=== PATIENT | male | born 1975 | race Caucasian/White ===

== ENCOUNTER 2020-08-04 09:06 | Emergency (ER) | payer MEDICAID, SELFPAY ==
[2020-08-04 09:15] VITALS: BP 149/96; PULSE 71; RESP 20; TEMP 36.9; O2SAT 98; BMI 27.4
--- NOTE | 2020-08-04 09:35 | HMH.EDUTC ---
[facility] [place] Clinical Impression: COVID-19 virus test result unknown Disposition: Home, Self-Care Condition on Discharge: Good Instructions: Preventing the Spread of Coronavirus Discharge Instructions Additional Instructions: no sign of a bacterial infection. Likely viral. Viruses can take 7-14 days to run their course. Nasal saline and bulb syringe or nose Dona to remove nasal drainage to help with nasal congestion. Hard to eat, drink, sleep with nasal congestion so important to keep this cleaned out. Monitor temp. Tylenol or Motrin as needed for pain or fever Encourage fluids, water, Gatorade, Powerade, Pedialyte if /toddler/child Warm salt water gargles Warm fluids Sore throat lozenges Sleep elevated Humidifier/vaporizer Your covid swab was sent for testing. These results are typically sent to the primary care. Be sure you follow-up in 2-3 days if no improvement so we can review the results and treat if necessary. Results should be back today call later Follow-up immediately for new or worsening symptoms or no noticeable improvement over the next 48-72 hours. Referrals: Janet Varner [Primary Care Provider] - Time of Disposition: 09:45 Medical Decision Making - Riky Inquiry Pt receiving controlled substance: No Vital Signs: 08/04/20 09:15 Temperature 98.4 F Temperature Source Oral Pulse Rate [Right Brachial] 71 Respiratory Rate 20 Blood Pressure [Right Arm] 149/96 H Blood Pressure Mean [Right Arm] 113 Blood Pressure Source [Right Arm] Automatic Cuff Blood Pressure Position [Right Arm] Sitting 02 Sat by Pulse Oximetry 98 Oxygen Delivery Method Room Air Orders (Tests/Meds): ORDERS Category Date Time Status Covid-19 Nasal PCR ([facility]) Routine Lab 08/04/20 09:20 Re[place] [facility] [place] - General Chief complaint: [facility] Stated complaint: covid test Time Seen by Provider: 08/04/20 09:35 Mode of Arrival: Ambulatory Source of Information: Patient Limitations: No Limitations Description of Symptoms (Recalled from Triage Doc. by RN): PATIENT C/O HEADACHE, CONGESTION, SOA, MUCOUS PRODUCTION AND FATIGUE SINCE YESTERDAY. DENIES FEVER. REQUESTING A COVID TEST. 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 pt states someone at his work place tested positive last week at work and he started on wednesday with runny nose, body aches, muscle pain,diarreha x 2, sore throat and overall feeling bad. - Related Data Allergies Allergy/AdvReac Type Severity Reaction Status Date / Time No Known Allergies Allergy Verified 08/04/20 09:35 - Worker's Comp Is this a Worker's Comp case?: No [facility] History - Hepatitis A Screen Drug use history?: No High risk sexual behaviors?: No History of sexually transmitted infection?: No Currently employed?: No Childcare worker?: No Do you have indoor plumbing?: Yes Do you have electricity?: Yes Attestation statement:: This patient has been screened for Hepatitis A risk factors. I have reviewed the patient's past medical history: Yes - Social History Alcohol Intake: never Occupational Status: other ROS Obtained: Yes Systems reviewed as appropriate & no additional complaints - Constitutional Constitutional: Reports system reviewed and no additional complaints, except as docu, Reports body ache, Reports fatigue, Denies fever(s), Reports malaise - Eyes Eyes: Reports system reviewed and no additional complaints, except as docu - ENT Ears, Nose, Mouth, and Throat: Reports system reviewed and no additional complaints, except as docu, Reports sore throat - Cardiovascular Cardiovascular:
[2020-08-04 09:45] VITALS: BP 149/96; PULSE 71; RESP 20; TEMP 36.9; O2SAT 98
--- NOTE | 2020-08-04 15:07 | PC.NURSE ---
PATIENT NOTIFIED OF NEG. COVID TEST RESULTS
== END 2020-08-04 09:50 | disposition home or self-care (01) ==
PROVIDERS: Emergency Provider Nurse Practitioner Family; PCP Nurse Practitioner Family
DX: Z20.828 Contact with and (suspected) exposure to other viral communicable diseases (principal); J02.9 Acute pharyngitis, unspecified
CPT/HCPCS: 99201; U0003

== ENCOUNTER 2020-08-24 09:29 | Emergency (ER) | payer MEDICAID, SELFPAY ==
[2020-08-24 09:53] VITALS: BP 135/80; PULSE 64; RESP 18; O2SAT 99; BMI 27.4
--- NOTE | 2020-08-24 10:00 | HMH.EDUTC ---
[facility] [place] Clinical Impression: Encounter for laboratory testing for COVID-19 virus Disposition: Home, Self-Care Condition on Discharge: Good Instructions: Preventing the Spread of Coronavirus Discharge Instructions Additional Instructions: *Monitor Temp, Over the counter Motrin or Tylenol as directed/as needed Tylenol every 4 hours and Motrin every 6 hours (as long as your family doctor has told you that you can take it) for fever or pain. and straight to ER if unable to lower temp less than 101.0 after medication given *Warm salt water gargles may help to soothe the throat *Throat Lozenges *Warm fluids like tea with honey may help to soothe the throat *Sleep elevated *Humidifier/Vaporizer *Flonase 2 sprays in each nostril daily but be aware that it may take 2-3 days before you notice improvement Follow up IMMEDIATELY for new or worsening symptoms or no Noticeable improvement over the next 48-72 hours. 911 for difficulty breathing or swallowing You was tested for today for COVID19 your test result should be back in the next 24-48 hours, you may call to the [facility] later today or tomorrow to see if your test results are back and the result [phone] [facility] hours are 9am-9pm You was given a handout with instructions for Self Quarantine and Self isolation for while you wait on test results and what to do if they are positive If you are positive the Health Dept will be contacting you also Referrals: Janet Varner [Primary Care Provider] - Forms: Work/School Release Time of Disposition: 10:01 Medical Decision Making - Riky Inquiry Pt receiving controlled substance: No Riky was queried for this patient: No Vital Signs: 08/24/20 09:53 Pulse Rate [Radial] 64 Respiratory Rate 18 Blood Pressure [Right Arm] 135/80 Blood Pressure Mean [Right Arm] 98 Blood Pressure Source [Right Arm] Automatic Cuff Blood Pressure Position [Right Arm] Sitting 02 Sat by Pulse Oximetry 99 Oxygen Delivery Method Room Air Orders (Tests/Meds): ORDERS Category Date Time Status Covid-19 Nasal PCR ([facility]) Routine Lab 08/24/20 09:35 Ordered [facility] [place] - General Stated complaint: Covid test Time Seen by Provider: 08/24/20 10:00 Mode of Arrival: Ambulatory Source of Information: Patient Limitations: No Limitations Description of Symptoms (Recalled from Triage Doc. by RN): runny nose, covid test HEENT Symptoms (Recalled from RN notes): Yes Resp Symptoms (Recalled from RN notes): No Skin Symptoms (Recalled from RN notes): No MS Symptoms (Recalled from RN notes): No Functional Status (Recalled from RN notes): wnl - History of Present Illness Provider Complaint: Patient states that he has been having runny nose States that girlfriend is having similar symtpoms and wanted to get checked for COVID Denies any other symptoms - Related Data Allergies Allergy/AdvReac Type Severity Reaction Status Date / Time No Known Allergies Allergy Verified 08/04/20 09:35 - Worker's Comp Is this a Worker's Comp case?: No [facility] History - Hepatitis A Screen Drug use history?: No High risk sexual behaviors?: No History of sexually transmitted infection?: No Currently employed?: No Childcare worker?: No Do you have indoor plumbing?: Yes Do you have electricity?: Yes Attestation statement:: This patient has been screened for Hepatitis A risk factors. I have reviewed the patient's past medical history: Yes - Social History Smoking Status: Current every day smoker Tobacco Type: cigarettes # Packs/Day (cigarettes): 1 Alcohol Intake: never Occupational Status: employed ROS Obtained: Yes All systems reviewed & no additional complaints, Yes Systems reviewed as appropriate & no additional complaints - Constitutional Constitutional: Reports system reviewed and no additional complaints, except as docu, Denies body ache, Denies chills, Denies fever(s), Denies headache(s) - ENT Ears, Nose, Mouth, and Throat: Reports system reviewed and no ad
[2020-08-24 10:30] VITALS: BP 135/80; PULSE 64; RESP 18; TEMP 36.7; O2SAT 99
== END 2020-08-24 10:33 | disposition home or self-care (01) ==
PROVIDERS: Emergency Provider Nurse Practitioner; PCP Nurse Practitioner Family
DX: Z20.828 Contact with and (suspected) exposure to other viral communicable diseases (principal); F17.210 Nicotine dependence, cigarettes, uncomplicated
CPT/HCPCS: 99201; U0003

== ENCOUNTER 2020-10-02 10:05 | Emergency (ER) | payer OTHER, SELFPAY ==
[2020-10-02 10:05] VITALS: BP 143/88; PULSE 76; RESP 14; TEMP 37.1; O2SAT 99; BMI 28.3
--- NOTE | 2020-10-02 10:50 | HMH.EDUTC ---
[facility] [place] Impression: Viral syndrome, Exposure to COVID-19 virus Disposition: Home, Self-Care Condition on Discharge: Good Instructions: Preventing the Spread of Coronavirus Discharge Instructions Additional Instructions: Drink plenty of fluids. Take tylenol for pain or fever. Return if you begin to have difficulty breathing. Follow up with your regular doctor. GO TO THE ER FOR ANY WORSENING SYMPTOMS Prescriptions: Ondansetron [Zofran 4mg ODT] 4 mg PO Q8HP PRN #12 tab.rapdis PRN Reason: Nausea Transmission Status: Received by [id number] Referrals: Janet Varner [Primary Care Provider] - Forms: Work/School Release Time of Disposition: 10:56 Medical Decision Making - Medical Records Medical records reviewed: No: I reviewed the patient's medical records. - Riky Inquiry Pt receiving controlled substance: No Vital Signs: 10/02/20 10:05 10/02/20 11:01 Temperature 98.7 F 98.7 F Temperature Source Oral Oral Pulse Rate 76 Pulse Rate [Right] 76 Respiratory Rate 14 14 Blood Pressure 143/88 H Blood Pressure [Right Arm] 143/88 H Blood Pressure Mean [Right Arm] 106 02 Sat by Pulse Oximetry 99 Orders (Tests/Meds): ORDERS Category Date Time Status Covid-19 Nasal PCR ([facility]) Routine Lab 10/02/20 10:15 [place] [facility] [place] Stated complaint: Covid test Time Seen by Provider: 10/02/20 10:51 Mode of Arrival: Ambulatory Source of Information: Patient Description of Symptoms (Recalled from Triage Doc. by RN): pt requested COVID test pt c/o fever, cough,fatigue, rash on stomach and neck for 3 days HEENT Symptoms (Recalled from RN notes): Yes Resp Symptoms (Recalled from RN notes): Yes Skin Symptoms (Recalled from RN notes): No MS Symptoms (Recalled from RN notes): No Functional Status (Recalled from RN notes): wnl - History of Present Illness Provider Complaint: He states that for the past 3 days he has had body aches, cough, skin rash and fatigue. He thinks that he has covid-19. - Related Data Previous Rx's Medication Instructions Recorded Ondansetron [Zofran 4mg ODT] 4 mg PO Q8HP PRN #12 tab.rapdis 10/02/20 Allergies Allergy/AdvReac Type Severity Reaction Status Date / Time No Known Allergies Allergy Verified 10/02/20 10:11 - Worker's Comp Is this a Worker's Comp case?: No Is this an [facility] Worker's Comp?: No Is this a [place] Worker's Comp?: No [facility] History - Hepatitis A Screen Drug use history?: No High risk sexual behaviors?: No History of sexually transmitted infection?: No Currently employed?: No Childcare worker?: No Do you have indoor plumbing?: Yes Do you have electricity?: Yes Attestation statement:: This patient has been screened for Hepatitis A risk factors. I have reviewed the patient's past medical history: Yes - Social History Smoking Status: Current every day smoker Tobacco Type: cigarettes # Packs/Day (cigarettes): 1 Alcohol Intake: never Occupational Status: employed ROS Obtained: Yes All systems reviewed & no additional complaints - Constitutional Constitutional: Reports anorexia - Eyes Eyes: Reports system reviewed and no additional complaints, except as docu - ENT Ears, Nose, Mouth, and Throat: Reports system reviewed and no additional complaints, except as docu - Cardiovascular Cardiovascular: Reports system reviewed and no additional complaints, except as docu - Respiratory Respiratory: Reports system reviewed and no additional complaints, except as docu - Gastrointestinal Gastrointestingal: Reports: system reviewed and no additional complaints, except as docu - Integumentary/Breasts Skin/Breast: Reports as per HPI Physical Exam - General General appearance: alert, in no apparent distress - Head Head exam: atraumatic, normocephalic, normal inspection - Eye Eye exam: Present: normal appearance, PERRL, EOMI - ENT ENT exam: Present: normal exam, normal orophar
[2020-10-02 11:01] VITALS: BP 143/88; PULSE 76; RESP 14; TEMP 37.1; O2SAT 99
== END 2020-10-02 11:05 | disposition home or self-care (01) ==
PROVIDERS: Emergency Provider Nurse Practitioner Family; PCP Nurse Practitioner Family
DX: Z20.822 Contact with and (suspected) exposure to COVID-19 (principal); B34.9 Viral infection, unspecified; F17.210 Nicotine dependence, cigarettes, uncomplicated
CPT/HCPCS: 99202; G0463; U0003

== ENCOUNTER 2020-10-19 09:41 | Emergency (ER) | payer OTHER, SELFPAY ==
[2020-10-19 09:45] VITALS: BP 129/85; PULSE 72; RESP 20; TEMP 36.9; O2SAT 97; BMI 28.3
[2020-10-19 10:02] VITALS: BP 129/85; PULSE 72; RESP 20; TEMP 36.9; O2SAT 97
--- NOTE | 2020-10-19 10:02 | HMH.EDUTC ---
[facility] [place] Disposition Clinical Impression: Exposure to COVID-19 virus Disposition: Home, Self-Care Condition on Discharge: Good Instructions: DI for COVID-19 (Suspected or Confirmed ), Coronavirus Disease 2019, Preventing the Spread of Coronavirus Discharge Instructions Additional Instructions: *Monitor Temp, Over the counter Motrin or Tylenol as directed/as needed Tylenol every 4 hours and Motrin every 6 hours (as long as your family doctor has told you that you can take it) for fever or pain. and straight to ER if unable to lower temp less than 101.0 after medication given Follow up IMMEDIATELY for new or worsening symptoms or no Noticeable improvement over the next 48-72 hours. 911 for difficulty breathing or swallowing You were tested for today for COVID19 your test result should be back in the next 24-48 hours, you may call to the [facility] to see if your test results are back in the next 48 hours [phone] [facility] hours are 9am-9pm You was given a handout with instructions for Self Quarantine and Self isolation for while you wait on test results and what to do if they are positive If you are positive the Health Dept will be contacting you also Referrals: Janet Varner [Primary Care Provider] - As needed Forms: Work/School Release Time of Disposition: 10:04 Medical Decision Making - Riky Inquiry Pt receiving controlled substance: No Riky was queried for this patient: No Vital Signs: 10/19/20 09:45 10/19/20 10:02 Temperature 98.5 F 98.5 F Temperature Source Oral Pulse Rate 72 Pulse Rate [Right Brachial] 72 Respiratory Rate 20 20 Blood Pressure 129/85 Blood Pressure [Right Arm] 129/85 Blood Pressure Mean [Right Arm] 99 Blood Pressure Source [Right Arm] Automatic Cuff Blood Pressure Position [Right Arm] Sitting 02 Sat by Pulse Oximetry 97 Oxygen Delivery Method Room Air Orders (Tests/Meds): ORDERS Category Date Time Status Covid-19 Nasal PCR ([facility]) Routine Lab 10/19/20 09:49 Ordered [facility] [place] HPI - General Stated complaint: covid test Time Seen by Provider: 10/19/20 10:02 Mode of Arrival: Ambulatory Source of Information: Patient Limitations: No Limitations Description of Symptoms (Recalled from Triage Doc. by RN): COVID TEST D/T EXPOSURE. DENIES SYMPTOMS HEENT Symptoms (Recalled from RN notes): No Resp Symptoms (Recalled from RN notes): No Skin Symptoms (Recalled from RN notes): No MS Symptoms (Recalled from RN notes): No Functional Status (Recalled from RN notes): WNL - History of Present Illness Provider Complaint: Patient state that he was recently around his step daughter that tested positive for COVID States that he is not having any symptoms but do to exposure he needed to get tested - Related Data Previous Rx's Medication Instructions Recorded Ondansetron [Zofran 4mg ODT] 4 mg PO Q8HP PRN #12 tab.rapdis 10/02/20 Allergies Allergy/AdvReac Type Severity Reaction Status Date / Time No Known Allergies Allergy Verified 10/02/20 10:11 - Worker's Comp Is this a Worker's Comp case?: No [facility] History - Hepatitis A Screen Drug use history?: No High risk sexual behaviors?: No History of sexually transmitted infection?: No Currently employed?: No Childcare worker?: No Do you have indoor plumbing?: Yes Do you have electricity?: Yes Attestation statement:: This patient has been screened for Hepatitis A risk factors. I have reviewed the patient's past medical history: Yes - Social History Smoking Status: Current every day smoker Tobacco Type: cigarettes # Packs/Day (cigarettes): 1 Alcohol Intake: never Occupational Status: employed ROS Obtained: Yes All systems reviewed & no additional complaints, Yes Systems reviewed as appropriate & no additional complaints - Constitutional Constitutional: Reports system reviewed and no additional complaints, except as docu, Denies body ache, Denies chills, Denies fever(s), Denies headache(s) - ENT Ears, Nose, Mouth, and
== END 2020-10-19 10:10 | disposition home or self-care (01) ==
PROVIDERS: Emergency Provider Nurse Practitioner; PCP Nurse Practitioner Family
DX: Z20.822 Contact with and (suspected) exposure to COVID-19 (principal)
CPT/HCPCS: 99202; G0463; U0003

== ENCOUNTER 2020-10-25 13:53 | Emergency (ER) | payer OTHER, SELFPAY ==
[2020-10-25 14:00] VITALS: BP 143/81; PULSE 73; RESP 17; TEMP 36.8; O2SAT 97; BMI 28.3
[2020-10-25 14:11] VITALS: BP 143/81; PULSE 73; RESP 17; TEMP 36.8; O2SAT 97
--- NOTE | 2020-10-25 14:11 | HMH.EDUTC ---
[facility] [place] Clinical Impression: Close exposure to COVID-19 virus Disposition: Home, Self-Care Condition on Discharge: Good Instructions: Preventing the Spread of Coronavirus Discharge Instructions, DI for COVID-19 (Suspected or Confirmed ) Additional Instructions: Drink plenty of fluids. Take tylenol for pain or fever. Return if you begin to have difficulty breathing. Follow up with your regular doctor. GO TO THE ER FOR ANY WORSENING SYMPTOMS Referrals: Janet Varner [Primary Care Provider] - Time of Disposition: 14:12 Medical Decision Making - Medical Records Medical records reviewed: Yes: I reviewed the patient's medical records. - Riky Inquiry Pt receiving controlled substance: No Vital Signs: 10/25/20 14:00 10/25/20 14:11 Temperature 98.2 F 98.2 F Temperature Source Temporal Artery Scan Pulse Rate 73 Pulse Rate [Left Brachial] 73 Respiratory Rate 17 17 Blood Pressure 143/81 H Blood Pressure [Left Arm] 143/81 H Blood Pressure Mean [Left Arm] 101 Blood Pressure Source [Left Arm] Automatic Cuff Blood Pressure Position [Left Arm] Sitting 02 Sat by Pulse Oximetry 97 Oxygen Delivery Method Room Air Orders (Tests/Meds): ORDERS Category Date Time Status Covid-19 Nasal PCR ([facility]) Routine Lab 10/25/20 13:55 Ordered [facility] [place] HPI - General Stated complaint: covid test,exposure Time Seen by Provider: 10/25/20 14:11 Mode of Arrival: Ambulatory Source of Information: Patient Limitations: No Limitations Description of Symptoms (Recalled from Triage Doc. by RN): COVID TEST D/T EXPOSURE. C/O HEADACHE HEENT Symptoms (Recalled from RN notes): No Resp Symptoms (Recalled from RN notes): No Skin Symptoms (Recalled from RN notes): No MS Symptoms (Recalled from RN notes): No Functional Status (Recalled from RN notes): WNL - History of Present Illness Provider Complaint: He states that his and children have covid-19 at this time. He has had a head ache since this morning. His work wanted him to have this covid test. - Related Data Previous Rx's Medication Instructions Recorded Ondansetron [Zofran 4mg ODT] 4 mg PO Q8HP PRN #12 tab.rapdis 10/02/20 Allergies Allergy/AdvReac Type Severity Reaction Status Date / Time No Known Allergies Allergy Verified 10/02/20 10:11 - Worker's Comp Is this a Worker's Comp case?: No [facility] History - Hepatitis A Screen Drug use history?: No High risk sexual behaviors?: No History of sexually transmitted infection?: No Currently employed?: No Childcare worker?: No Do you have indoor plumbing?: Yes Do you have electricity?: Yes Attestation statement:: This patient has been screened for Hepatitis A risk factors. I have reviewed the patient's past medical history: Yes - Social History Smoking Status: Current every day smoker Tobacco Type: cigarettes # Packs/Day (cigarettes): 1 Alcohol Intake: never Occupational Status: employed ROS Obtained: Yes All systems reviewed & no additional complaints - Constitutional Constitutional: Reports system reviewed and no additional complaints, except as docu - Eyes Eyes: Reports system reviewed and no additional complaints, except as docu - ENT Ears, Nose, Mouth, and Throat: Reports system reviewed and no additional complaints, except as docu - Cardiovascular Cardiovascular: Reports system reviewed and no additional complaints, except as docu - Respiratory Respiratory: Reports system reviewed and no additional complaints, except as docu - Gastrointestinal Gastrointestingal: Reports: system reviewed and no additional complaints, except as docu Physical Exam - General General appearance: alert, in no apparent distress - Head Head exam: atraumatic, normocephalic, normal inspection - Eye Eye exam: Present: normal appearance, PERRL, EOMI - ENT ENT exam: Present: normal exam, normal oropharynx, mucous membranes moist, TM'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
== END 2020-10-25 14:15 | disposition home or self-care (01) ==
PROVIDERS: Emergency Provider Nurse Practitioner Family; PCP Nurse Practitioner Family
DX: Z20.822 Contact with and (suspected) exposure to COVID-19 (principal); R51.9 Headache, unspecified
CPT/HCPCS: 99202; G0463; U0003

== ENCOUNTER 2021-02-16 12:42 | Emergency (ER) | payer OTHER, SELFPAY ==
[2021-02-16 13:11] VITALS: BP 117/81; PULSE 98; RESP 19; TEMP 37.1; O2SAT 97; BMI 27.4
[2021-02-16 13:21] LABS: UTC Influenza A Antigen Negative (Negative); UTC Strep Screen (Rapid) Negative (Negative)
[2021-02-16 13:22] LABS: UTC Influenza B Antigen Negative (Negative)
--- NOTE | 2021-02-16 13:36 | HMH.EDUTC ---
[facility] [place] Disposition Clinical Impression: Viral syndrome Sinusitis Qualifiers: Sinusitis location: unspecified location Chronicity: acute Recurrence: non-recurrent Qualified Code(s): J01.90 - Acute sinusitis, unspecified Disposition: Home, Self-Care Condition on Discharge: Good Instructions: DI for Sinusitis, DI for Viral Syndrome, DI for COVID-19 (Suspected or Confirmed ), Preventing the Spread of Coronavirus Discharge Instructions Additional Instructions: Drink plenty of fluids. Take tylenol or ibuprofen for pain or fever. Take the medications as directed. Follow up with your regular doctor. GO TO THE ER FOR ANY WORSENING SYMPTOMS Prescriptions: Promethazine/Dextromethorphan [Promethazine-Dm Syrup] 5 ml PO Q6HP PRN #240 syrup PRN Reason: Cough [facility]: [facility] Ondansetron [Zofran 4mg ODT] 4 mg PO Q8HP PRN #20 tab.rapdis PRN Reason: Nausea Transmission Status: [facility] Azithromycin [Z-Martinez 250mg Tab*] 250 mg PO UD DOSE PK #6 tab Transmission Status: Received by [facility] Referrals: Janet Varner [Primary Care Provider] - Forms: Work/School Release Time of Disposition: 13:43 Medical Decision Making - Medical Records Medical records reviewed: No: I reviewed the patient's medical records. - Riky Inquiry Pt receiving controlled substance: No Vital Signs: 02/16/21 13:11 02/16/21 13:48 Temperature 98.8 F 98.4 F Temperature Source Oral Oral Pulse Rate 93 H Pulse Rate [Right] 98 H Respiratory Rate 19 18 Blood Pressure 126/85 Blood Pressure [Right Arm] 117/81 Blood Pressure Mean [Right Arm] 93 Blood Pressure Source [Right Arm] Automatic Cuff Blood Pressure Position [Right Arm] Sitting 02 Sat by Pulse Oximetry 97 - Lab Data Lab Results 02/16/21 13:19: Influenza Type A Ag Negative, Influenza Type B Ag Negative 02/16/21 13:19: Strep Scn Rapid Clinic Negative Orders (Tests/Meds): ORDERS Category Date Time Status Strep Screen Confirmation Stat Micro 02/16/21 13:[address] [facility] [place] HPI - General Stated complaint: covid symptoms Time Seen by Provider: 02/16/21 13:36 Mode of Arrival: Ambulatory Source of Information: Patient Limitations: No Limitations Description of Symptoms (Recalled from Triage Doc. by RN): pt c/o ASKEW, drainage, fatigue, diarhea and a productive cough wtih yellow/white sputum. ongoing for 3 days. HEENT Symptoms (Recalled from RN notes): Yes (ASKEW) Resp Symptoms (Recalled from RN notes): Yes (productive cough with white sputum) Skin Symptoms (Recalled from RN notes): No MS Symptoms (Recalled from RN notes): No Functional Status (Recalled from RN notes): na - History of Present Illness Provider Complaint: He states that for the past 2 days he has had sinus congestion, cough, diarrhea, n/v, chillng and body aches. - Related Data Previous Rx's Medication Instructions Recorded Ondansetron [Zofran 4mg ODT] 4 mg PO Q8HP PRN #12 tab.rapdis 10/02/20 Azithromycin [Z-Martinez 250mg Tab*] 250 mg PO UD DOSE PK #6 tab 02/16/21 Ondansetron [Zofran 4mg ODT] 4 mg PO Q8HP PRN #20 tab.rapdis 02/16/21 Promethazine/Dextromethorphan 5 ml PO Q6HP PRN #240 syrup 02/16/21 [Promethazine-Dm Syrup] Allergies Allergy/AdvReac Type Severity Reaction Status Date / Time No Known Allergies Allergy Verified 02/16/21 13:15 - Worker's Comp Is this a Worker's Comp case?: No [facility] History - Hepatitis A Screen Drug use history?: No High risk sexual behaviors?: No History of sexually transmitted infection?: No Currently employed?: No Childcare worker?: No Do you have indoor plumbing?: Yes Do you have electricity?: Yes Attestation statement:: This patient has been screened for Hepatitis A risk factors. I have reviewed the patient's past medical history: Yes - Social History Smoking Status: Current every day smoker Tobacco Type: cigarettes # Packs/Day (cigarettes): 1 [employer]
[2021-02-16 13:48] VITALS: BP 126/85; PULSE 93; RESP 18; TEMP 36.9
== END 2021-02-16 13:53 | disposition home or self-care (01) ==
PROVIDERS: Emergency Provider Nurse Practitioner Family; PCP Nurse Practitioner Family
DX: J01.90 Acute sinusitis, unspecified (principal); B34.9 Viral infection, unspecified
CPT/HCPCS: 87804; 87880; 99202; G0463; U0003

== ENCOUNTER → 2021-07-04 08:18 | Outpatient (CLI) | payer OTHER, SELFPAY | PROVIDERS: PCP Nurse Practitioner Family; Visit Provider Nurse Practitioner | DX: Z20.822 Contact with and (suspected) exposure to COVID-19 (principal) | CPT/HCPCS: C9803; U0003; U0005 ==

== ENCOUNTER → 2021-09-24 08:42 | Outpatient (CLI) | payer OTHER, SELFPAY | PROVIDERS: PCP Nurse Practitioner Family; Visit Provider Nurse Practitioner | DX: Z20.822 Contact with and (suspected) exposure to COVID-19 (principal) | CPT/HCPCS: C9803; U0003; U0005 ==

== ENCOUNTER → 2021-10-08 08:58 | Outpatient (CLI) | payer OTHER, SELFPAY | PROVIDERS: Visit Provider Nurse Practitioner | DX: Z20.822 Contact with and (suspected) exposure to COVID-19 (principal) | CPT/HCPCS: C9803; U0003; U0005 ==

== ENCOUNTER 2022-04-16 08:24 | Emergency (ER) | payer OTHER, SELFPAY ==
[2022-04-16] VITALS (7 sets, daily range): BP systolic 112–159; BP diastolic 65–88; PULSE 48–67; RESP 16; TEMP 36.5; O2SAT 96–99; BMI 28.3
--- NOTE | 2022-04-16 08:44 | CT_ITS ---
FINAL REPORT CLINICAL HISTORY: left flank pain FINDINGS: Axial CT images of the abdomen and pelvis were obtained without intravenous contrast. Coronal reformatted images were also obtained.This study was performed with techniques to keep radiation doses as low as reasonably achievable (ALARA). Individualized dose reduction techniques using automated exposure control or adjustment of mA and/or kV according to the patient's size were employed. Abdomen: There are ground-glass opacities in both lung bases which is worrisome for bilateral pneumonia. There is no evidence of renal stone or hydronephrosis. The gallbladder is present. The liver, spleen and pancreas have an unremarkable, unenhanced appearance. There are small high attenuation masses in both kidneys measuring 6 mm on the right and 7 mm on the left. The cannot be accurately characterized without contrast but may represent small hyperdense cysts. No inflammatory process is identified. There are moderate vascular calcifications. Pelvis: The appendix is normal. There is a small umbilical hernia containing fat. Images of the pelvis reveal no evidence of ureteral dilation or ureteral stone.No mass or abnormal fluid collection is identified. On the bone window images, there is vague sclerotic area of the superomedial right femoral head of uncertain significance. IMPRESSION: Findings worrisome for bilateral pneumonia. Small bladder renal masses may represent hyperdense cysts. Vague sclerotic area of the superomedial right femoral head of uncertain significance, osteonecrosis is not excluded. If indicated, MRI may be helpful. Reviewed, Interpreted and Dictated by Hugo Ling III, MD Transcribed by Donna Hargrove Authenticated and [facility]
--- NOTE | 2022-04-16 08:45 | HMH.EDGENADL ---
ED Disposition Clinical Impression: Atypical pneumonia Disposition: Home, Self-Care Condition on Discharge: Good Instructions: Pneumonia-Adult Prescriptions: Doxycycline Monohydrate [Doxycycline Whitfield 100mg Tab] 100 mg PO Q12 #20 tab Transmission Status: Pending to [facility] Referrals: Provider,Referral, [Primary Care Provider] - - Critical Care Critical Care Time: No Attestation: On 04/16/22, the high probability of a clinically significant, sudden or life threatening deterioration of the following system(s) required my full and direct attention, intervention and personal management. The time I documented below is in addition to time spent performing reported procedures but includes the following listed in this critical care notation. Medical Decision Making - Medical Records Medical records reviewed: Yes: I reviewed the patient's medical records. - Riky Inquiry Pt receiving controlled substance: No Vital Signs: 04/16/22 08:25 04/16/22 09:21 04/16/22 09:30 Temperature 97.7 F Temperature Source Oral Pulse Rate 59 L 62 Pulse Rate [Radial] 66 Respiratory Rate 16 Blood Pressure 129/65 139/82 Blood Pressure [Right Arm] 159/85 H Blood Pressure Mean 96 105 Blood Pressure Mean [Right Arm] 109 Blood Pressure Position [Right Arm] Sitting 02 Sat by Pulse Oximetry 98 99 96 Oxygen Delivery Method Room Air 04/16/22 10:00 04/16/22 10:30 04/16/22 11:01 Temperature Temperature Source Pulse Rate 61 48 L 51 L Pulse Rate [Radial] Respiratory Rate Blood Pressure 143/88 H 128/72 112/67 Blood Pressure [Right Arm] Blood Pressure Mean 101 90 82 Blood Pressure Mean [Right Arm] Blood Pressure Position [Right Arm] 02 Sat by Pulse Oximetry 96 96 98 Oxygen Delivery Method - Lab Data Lab Results 04/16/22 08:50: WBC 7.1, RBC 4.96, Hgb 15.8, Hct 45.2, MCV 91.3, MCH 31.9 H, MCHC 35.0, RDW 13.0, Plt Count 237, MPV 7.3 L, Neut % (Auto) 63.4, Lymph % (Auto) 28.3, Whitfield % (Auto) 4.3, Eos % (Auto) 3.2, Baso % (Auto) 0.8, Neut # (Auto) 4.5, Lymph # (Auto) 2.0, Whitfield # (Auto) 0.3, Eos # (Auto) 0.2, Baso # (Auto) 0.1 04/16/22 08:50: Sodium 139, Potassium 3.8, Chloride 104, Carbon Dioxide 29, Anion Gap 9.8, BUN 5 L, Creatinine 0.70, Estimated Creat Clear 137, Estimated GFR 120, Est GFR ( Amer) 146, Glucose 80, Calcium 9.8, Total Bilirubin 0.2, AST 34, ALT 34, Alkaline Phosphatase 73, Total Protein 7.5, Albumin 4.0, Globulin 3.5 H, Albumin/Globulin Ratio 1.1 04/16/22 08:50: Lipase 98 04/16/22 09:12: Urine Color Yellow, Urine Appearance Clear, Urine pH 7.0, Ur Specific Harrison <= 1.005, Urine Protein Negative, Urine Glucose (UA) Negative, Urine Ketones Negative, Urine Blood Negative, Urine Nitrate Negative, Urine Bilirubin Negative, Urine Urobilinogen 0.2, Ur Leukocyte Esterase Negative, Urine RBC None, Urine WBC None, Ur Squamous Epith Cells Occasional, Urine Bacteria None 04/16/22 10:02: SARS-CoV-2 (PCR) Not detected, Influenza A Untype (PCR) Not detected, Influenza Type B (PCR) Not detected Result diagrams: 04/16/22 08:50 04/16/22 08:50 Orders (Tests/Meds): ED MEDICATIONS Discontinued Medications Generic Name Dose Route Start Last Admin Trade Name Freq PRN Reason Stop Dose Admin Sodium Chloride 1,000 mls @ 999 mls/hr 04/16/22 08:45 04/16/22 09:27 Sod Chlor 0.9% 1000ml Bag IV 04/16/22 09:45 999 mls/hr .Q1H1M ARAM Administration Morphine Sulfate 4 mg 04/16/22 08:44 04/16/22 09:27 Morphine 4mg/Ml Syringe IV 04/16/22 08:45 4 mg ONCE ONE Administration Ondansetron HCl 4 mg 04/16/22 08:44 04/16/22 09:27 Ondansetron 4mg/2ml Vial IV 04/16/22 08:45 4 mg ONCE ONE Administration - CT Data CT Scan: Abdomen, Pelvis Time Received: 11:[address] Reviewed: Yes: I have reviewed the patient's CT results, I have viewed the radiologist's interpretation Findings Narrative: IMPRESSION: Findings worrisome for bilateral pneumonia.
[2022-04-16 09:01] LABS: Basophils # 0.1 K/mm3 (0-0.2); Basophils % 0.8 % (0.1-2.0); Eosinophils # 0.2 K/mm3 (0.0-0.4); Eosinophils % 3.2 % (0.1-12.0); Hematocrit 45.2 % (42.0-52.0); Hemoglobin 15.8 g/dL (14.1-18.0); Lymphocytes % 28.3 % (10-50); Mean Corpuscular Hemoglobin 31.9 pg (27.0-31.2); Mean Corpuscular Volume 91.3 fl (80-94); Mean Platelet Volume 7.3 fl (7.4-10.4); Monocytes # 0.3 K/mm3 (0.1-1.0); Monocytes % 4.3 % (1.7-9.3); Neutrophils # 4.5 K/mm3 (1.8-7.8); Neutrophils % 63.4 % (37.0-80.0); Platelet Count 237 K/mm3 (142-424); Red Blood Count 4.96 M/mm3 (4.60-6.20); White Blood Count 7.1 K/mm3 (4.8-10.8)
[2022-04-16 09:06] LABS: Lipase 98 U/L (23-300)
[2022-04-16 09:07] LABS: Alanine Aminotransferase 34 U/L (12-78); Albumin/Globulin Ratio 1.1 (1.1-1.8); Alkaline Phosphatase 73 U/L (38-126); Anion Gap 9.8 mEq/L (5-15); Aspartate Amino Transferase 34 U/L (17-59); Bilirubin,Total 0.2 mg/dl (0.2-1.3); Blood Urea Nitrogen 5 mg/dl (9-20); Calcium 9.8 mg/dl (8.4-10.2); Carbon Dioxide 29 mmol/L (22.0-30.0); Chloride 104 mmol/L (98-107); Creatinine Clearance Estimated 137 mL/min (50-200); Estimated Glomerular Filt Rate 120 ml/min (>60); GFR (African American) 146 ML/MIN (>60); Globulin 3.5 g/dL (1.3-3.2); Glucose 80 mg/dl (74-100); Potassium 3.8 mmoL/L (3.5-5.1); Sodium 139 mmol/L (136-145); Total Protein,Serum 7.5 g/dl (6.3-8.2)
[2022-04-16 09:23] LABS: Microscopic, Urine URINE MICROSCOPIC (MICROSCOPIC)
[2022-04-16 09:24] LABS: Appearance,Urine CLEAR (Clear); Bilirubin,Urine Negative (Negative); Blood, Urine Negative (Negative); Color,Urine YELLOW (Yellow); Glucose,Urine (UA) Negative (Negative); Ketones,Urine Negative (Negative); Leukocyte Esterase,Urine Negative (Negative); Nitrate,Urine Negative (Negative); Protein,Urine Negative (Negative); Specific Gravity, Urine <= 1.005 (1.005-1.030); Urobilinogen,Urine 0.2 EU/dl (0.2)
[2022-04-16 10:05] LABS: Squamous Epithelial Cell,Urine Occasional #/hpf (0-5)
[2022-04-16 10:14] LABS: Coronavirus 19, PCR Not Detected (NotDetected); Influenza A, PCR Not Detected (NotDetected); Influenza B, PCR Not Detected (NotDetected)
--- NOTE | 2022-04-16 11:41 | PC.NURSE ---
Basia RN at going over discharge instructions with patient and family
== END 2022-04-16 11:45 | disposition home or self-care (01) ==
PROVIDERS: Emergency Provider Emergency Medicine
DX: J18.9 Pneumonia, unspecified organism (principal); N20.0 Calculus of kidney
CPT/HCPCS: 74176; 80053; 81001; 83690; 85025; 96361; 96374; 96375; 99284; C9803; J2405; U0003; U0005

== ENCOUNTER 2022-10-28 17:41 | Emergency (ER) | payer OTHER, SELFPAY ==
[2022-10-28 17:42] VITALS: BP 130/78; PULSE 100; RESP 18; TEMP 37.3; O2SAT 96; BMI 25.7
[2022-10-28 18:24] VITALS: BP 154/77; PULSE 111; RESP 20; TEMP 36.8; O2SAT 98; BMI 25.7
--- NOTE | 2022-10-28 18:55 | PC.NURSE ---
1855 DR MERCADO AT BEDSIDE
--- NOTE | 2022-10-28 18:59 | HMH.EDGENADL ---
Discharge Plan Disposition Chief Complaint: Abdominal Pain Prescriptions Prescriptions: No Action promethazine-DM 120 ML syrup 5 ml PO Q6HP PRN (Reason: Cough) Qty: 240 0RF azithromycin 250 MG tablet 250 mg PO UD DOSE PK Qty: 6 0RF Rx Instructions: Take two (2) tablets today, then one (1) tablet days #2 thru #5 ondansetron 4 MG tablet,disintegrating 4 mg PO Q8HP PRN (Reason: Nausea) Qty: 20 0RF doxycycline monohydrate 100 MG tablet 100 mg PO Q12 Qty: 20 0RF ondansetron 4 MG tablet,disintegrating 4 mg PO Q8HP PRN (Reason: Nausea) Qty: 12 0RF Referrals Follow up/Referrals: Provider,Referral, MD [Primary Care Provider] - See instructions Clinical Impressions Clinical Impression: Pneumonia Instructions Patient Instructions: DI for Acute Abdominal Pain Discharge ED Provider: Juan Pierre General Adult HPI General Chief complaint: Abdominal Pain Stated complaint: COVID + sORE THEROATR,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 by RN): pt is covid +. States that he cannot take a deep breath, coughing, sneezing, fatigue, low grade fever, bilateral abdominal pain that wraps around back and radiates to left testical. He states that last time he had covid he got stage 3 kidney failure. History of Present Illness HPI narrative: Patient presents with a 3 to 4-day history of fever cough and body aches to include pain in both flanks particular the left side. Symptoms are worse with coughing. He notes some associated shortness of air. He describes symptoms as moderate. Related Data Previous Rx's Medication Instructions Recorded ondansetron 4 mg disintegrating 4 mg PO Q8HP PRN Nausea ##12 10/02/20 tablet azithromycin 250 mg tablet 250 mg PO UD DOSE PK #6 tabs 02/16/21 ondansetron 4 mg disintegrating 4 mg PO Q8HP PRN Nausea ##20 02/16/21 tablet promethazine-DM 6.25 mg-15 mg/5 mL 5 ml PO Q6HP PRN Cough ##240 02/16/21 oral syrup doxycycline monohydrate 100 mg 100 mg PO Q12 #20 tabs 04/16/22 tablet Allergies Allergy/AdvReac Type Severity Reaction Status Date / Time No Known Allergies Allergy Verified 02/16/21 13:15 [facility] Disclaimer: The information contained in this section may have been updated after the patient was seen, as this information can be updated by other users. Social History Smoking Status: Current every day smoker tobacco type: cigarettes packs per day: 1 second hand exposure: Yes alcohol intake: never current occupational status: employed Travel in the last 8 weeks: None ROS Obtained: Yes All systems reviewed & no additional complaints except as documented Physical Exam General General appearance: alert and in no apparent distress Head Head exam: atraumatic Eye Eye exam: Present normal appearance ENT ENT exam: Present normal exam and normal oropharynx Neck Neck exam: Present normal inspection Chest Chest inspection: Present normal inspection and symmetric chest wall rise Respiratory Respiratory exam: Present normal lung sounds bilaterally; Absent respiratory distress Cardiovascular Cardiovascular exam: Present regular rate and normal rhythm Abdominal Exam Abdominal exam: Present soft; Absent tenderness Back Exam Back exam: Present normal inspection Neurological Exam Neurological exam: Present alert and oriented X3 Psychiatric Psychiatric exam: Present normal affect Skin Skin exam: Present warm and dry Lymphatic Lymphatic Findings: no adenopathy Medical Decision Making Riky Inquiry Pt receiving controlled substance: No Vital Signs: 10/28/22 18:24 10/28/22 17:42 Temperature 98.3 F 99.1 F Temperature Source Oral Oral Pulse Rate [Radial] 100 H Pulse Rate [Right Radial] 111 H Respiratory Rate 20 18 Blood P
--- NOTE | 2022-10-28 19:08 | PC.NURSE ---
PT PROVIDED WARM BLANKET AND WATER. AT BEDSIDE
--- NOTE | 2022-10-28 19:12 | XR_ITS ---
PROCEDURE INFORMATION: Exam: XR Chest Exam date and time: 10/28/2022 7:30 PM Age: 47 years old Clinical indication: Cough and shortness of breath; Patient HX: Covid positive for a week, cough, SOA. Smoker. TECHNIQUE: Imaging protocol: Radiologic exam of the chest. Views: 1 view. COMPARISON: CT ABDOMEN PELVIS WO CON 04/16/2022 9:07 AM FINDINGS: Lungs: Mild diffuse interstitial prominence noted in the bilateral mid to lower lungs. Lung apices are clear. Pleural spaces: Unremarkable. No pleural effusion. No pneumothorax. Heart/Mediastinum: Unremarkable. No cardiomegaly. Bones/joints: Unremarkable. IMPRESSION: Mild interstitial prominence in the lower lungs appear similar to CT study from 6 months previous. This could reflect persistent chronic infiltrates or recurrent pneumonitis.
[2022-10-28 19:15] LABS: Basophils # 0.2 K/mm3 (0-0.2); Basophils % 1.6 % (0.1-2.0); Eosinophils # 0.3 K/mm3 (0.0-0.4); Eosinophils % 2.5 % (0.1-12.0); Hematocrit 49.2 % (42.0-52.0); Hemoglobin 16.2 g/dL (14.1-18.0); Lymphocytes # 2.3 K/mm3 (0.7-4.5); Lymphocytes % 23.5 % (10-50); Mean Corpuscular Hemoglobin 30.5 pg (27.0-31.2); Mean Corpuscular Volume 92.4 fl (80-94); Monocytes # 0.4 K/mm3 (0.1-1.0); Monocytes % 3.8 % (1.7-9.3); Neutrophils # 6.7 K/mm3 (1.8-7.8); Neutrophils % 68.5 % (37.0-80.0); Platelet Count 243 K/mm3 (142-424); Red Blood Count 5.32 M/mm3 (4.60-6.20); White Blood Count 9.8 K/mm3 (4.8-10.8)
[2022-10-28 19:16] LABS: Microscopic, Urine URINE MICROSCOPIC (MICROSCOPIC)
[2022-10-28 19:32] LABS: Appearance,Urine CLEAR (Clear); Bilirubin,Urine Negative (Negative); Blood, Urine Negative (Negative); Color,Urine YELLOW (Yellow); Glucose,Urine (UA) Negative (Negative); Ketones,Urine Negative (Negative); Leukocyte Esterase,Urine Negative (Negative); Nitrate,Urine Negative (Negative); Protein,Urine Negative (Negative)
[2022-10-28 19:38] LABS: Squamous Epithelial Cell,Urine Occasional #/hpf (0-5)
[2022-10-28 19:47] LABS: Alanine Aminotransferase 25 U/L (12-78); Albumin Level 4.2 g/dl (3.5-5.0); Albumin/Globulin Ratio 1.2 (1.1-1.8); Alkaline Phosphatase 77 U/L (38-126); Anion Gap 9.7 mEq/L (5-15); Aspartate Amino Transferase 33 U/L (17-59); Bilirubin,Total 0.3 mg/dl (0.2-1.3); Blood Urea Nitrogen 5 mg/dl (9-20); Calcium 9.2 mg/dl (8.4-10.2); Carbon Dioxide 29 mmol/L (22.0-30.0); Chloride 104 mmol/L (98-107); Creatinine Clearance Estimated 107 mL/min (50-200); Estimated Glomerular Filt Rate 103 ml/min (>60); GFR (African American) 124 ML/MIN (>60); Globulin 3.4 g/dL (1.3-3.2); Glucose 105 mg/dl (74-100); Lipase 117 U/L (23-300); Potassium 3.7 mmoL/L (3.5-5.1); Sodium 139 mmol/L (136-145); Total Protein,Serum 7.6 g/dl (6.3-8.2)
[2022-10-28 20:15] LABS: D-Dimer 0.95 ug/mL (0.0-0.5)
--- NOTE | 2022-10-28 20:17 | CT_ITS ---
PROCEDURE INFORMATION: Exam: CTA Chest With Contrast Exam date and time: 10/28/2022 8:43 PM Age: 47 years old Clinical indication: Shortness of breath; Patient HX: Covid +; Additional info: SOA TECHNIQUE: Imaging protocol: Computed tomographic angiography of the chest with contrast. 3D rendering (Not supervised by radiologist): MIP and/or 3D reconstructed images were created by the technologist. Radiation optimization: All CT scans at this facility use at least one of these dose optimization techniques: automated exposure control; mA and/or kV adjustment per patient size (includes targeted exams where dose is matched to clinical indication); or iterative reconstruction. Contrast material: ISOVUE; Contrast volume: 70 ml; Contrast route: INTRAVENOUS (IV); Other protocol: This patient has received [address] and 0 known cardiac nuclear medicine studies in the 12 months prior to the current study. COMPARISON: CR XR CHEST PORTABLE 10/28/2022 7:30 PM FINDINGS: Pulmonary arteries: Normal. No pulmonary emboli. Aorta: Unremarkable. No aortic aneurysm. No aortic dissection. Lungs: Hazy ground-glass infiltrates are present in the bilateral mid to lower lungs. Moderate changes of emphysema are noted in the upper lungs. Pleural spaces: Unremarkable. No pneumothorax. No pleural effusion. Heart: Unremarkable. No cardiomegaly. No pericardial effusion. Lymph nodes: Unremarkable. No enlarged lymph nodes. Bones/joints: Unremarkable. No acute fracture. Soft tissues: Unremarkable. IMPRESSION: 1. No evidence of pulmonary embolus 2. Diffuse ground-glass infiltrates in the bilateral mid to lower lungs which could reflect early changes of chronic interstitial lung disease or active pneumonitis, depending on clinical presentation. Underlying changes of emphysema also noted.
--- NOTE | 2022-10-28 20:23 | HMH.EDGENADL ---
Discharge Plan Disposition Chief Complaint: Abdominal Pain Prescriptions Prescriptions: No Action promethazine-DM 120 ML syrup 5 ml PO Q6HP PRN (Reason: Cough) Qty: 240 0RF azithromycin 250 MG tablet 250 mg PO UD DOSE PK Qty: 6 0RF Rx Instructions: Take two (2) tablets today, then one (1) tablet days #2 thru #5 ondansetron 4 MG tablet,disintegrating 4 mg PO Q8HP PRN (Reason: Nausea) Qty: 20 0RF doxycycline monohydrate 100 MG tablet 100 mg PO Q12 Qty: 20 0RF ondansetron 4 MG tablet,disintegrating 4 mg PO Q8HP PRN (Reason: Nausea) Qty: 12 0RF Referrals Follow up/Referrals: Provider,Referral, MD [Primary Care Provider] - See instructions Clinical Impressions Clinical Impression: Pneumonia Instructions Patient Instructions: DI for Acute Abdominal Pain Discharge ED Provider: Juan Pierre General Adult HPI General Chief complaint: Abdominal Pain Stated complaint: COVID + sORE THEROATR,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 by RN): pt is covid +. States that he cannot take a deep breath, coughing, sneezing, fatigue, low grade fever, bilateral abdominal pain that wraps around back and radiates to left testical. He states that last time he had covid he got stage 3 kidney failure. History of Present Illness HPI narrative: Patient presents with a 3 to 4-day history of productive cough as well as shortness of air and now some left-sided abdominal discomfort that is worse with cough. He describes symptoms as mild to moderate has had fever at home. He was recently self diagnosed with COVID. He denies chest pain Related Data Previous Rx's Medication Instructions Recorded ondansetron 4 mg disintegrating 4 mg PO Q8HP PRN Nausea ##12 10/02/20 tablet azithromycin 250 mg tablet 250 mg PO UD DOSE PK #6 tabs 02/16/21 ondansetron 4 mg disintegrating 4 mg PO Q8HP PRN Nausea ##20 02/16/21 tablet promethazine-DM 6.25 mg-15 mg/5 mL 5 ml PO Q6HP PRN Cough ##240 02/16/21 oral syrup doxycycline monohydrate 100 mg 100 mg PO Q12 #20 tabs 04/16/22 tablet Allergies Allergy/AdvReac Type Severity Reaction Status Date / Time No Known Allergies Allergy Verified 02/16/21 13:15 [facility] Disclaimer: The information contained in this section may have been updated after the patient was seen, as this information can be updated by other users. Social History Smoking Status: Current every day smoker tobacco type: cigarettes packs per day: 1 second hand exposure: Yes alcohol intake: never current occupational status: employed Travel in the last 8 weeks: None ROS Obtained: Yes All systems reviewed & no additional complaints except as documented Physical Exam General General appearance: alert and in no apparent distress Head Head exam: atraumatic Eye Eye exam: Present normal appearance ENT ENT exam: Present normal exam Neck Neck exam: Present normal inspection Chest Chest inspection: Present normal inspection and symmetric chest wall rise Respiratory Respiratory exam: Present normal lung sounds bilaterally; Absent respiratory distress Cardiovascular Cardiovascular exam: Present regular rate and normal rhythm Abdominal Exam Abdominal exam: Present soft; Absent tenderness Extremities Exam Extremities exam: Present normal inspection Back Exam Back exam: Present normal inspection Neurological Exam Neurological exam: Present alert and oriented X3 Medical Decision Making Riky Inquiry Pt receiving controlled substance: No Vital Signs: 10/28/22 18:24 10/28/22 17:42 Temperature 98.3 F 99.1 F Temperature Source Oral Oral Pulse Rate [Radial] 100 H Pulse Rate [Right Radial] 111 H Respiratory Rate 20 18 Blood Pressure [Right Arm] 154/77 H 130/78 Blood Pres
[2022-10-28 21:51] VITALS: BP 152/70; PULSE 105; RESP 18; TEMP 36.6; O2SAT 99
== END 2022-10-28 21:30 | disposition home or self-care (01) ==
PROVIDERS: Emergency Medicine; Emergency Provider Emergency Medicine
DX: U07.1 COVID-19 (principal); J12.82 Pneumonia due to coronavirus disease 2019; F17.210 Nicotine dependence, cigarettes, uncomplicated
CPT/HCPCS: 71045; 71275; 80053; 81001; 83690; 85025; 85378; 96374; 99285; Q9967

== ENCOUNTER 2023-06-14 08:08 | Emergency (ER) | payer OTHER, SELFPAY ==
[2023-06-14] VITALS (11 sets, daily range): BP systolic 119–165; BP diastolic 70–104; PULSE 56–75; RESP 16–18; TEMP 36.5–36.7; O2SAT 95–99; BMI 26.6
--- NOTE | 2023-06-14 08:30 | ECG_ITS ---
APPROVED REPORT Exam: Resting ECG HR:76 bpm ECG Measurements Heart Rate 76 AXES SD 161 P 52 QRSd 105 QRS 48 QT 358 T 47 QTc 388 Conclusion SINUS RHYTHM POSSIBLE LEFT VENTRICULAR HYPERTROPHY [VOLTAGE CRITERIA PLUS LAE OR QRS WIDENING] ABNORMAL ECG UNCONFIRMED REPORT Electronically signed by : Jim Hope MD 06/14/2023 20:17:16
--- NOTE | 2023-06-14 08:34 | PC.NURSE ---
pt brought over to ED d/t complaints of chest pain
--- NOTE | 2023-06-14 08:40 | PC.NURSE ---
Spoke with pt when he first came in to room describing symptoms. Expressed he needed to go to the ER he refused a few attempts. I finally got the patient to agree to go to ER once discussing with ER charge nurse.
--- NOTE | 2023-06-14 08:49 | XR_ITS ---
FINAL REPORT CLINICAL HISTORY: Precordial chest pain, nonspecific cough COMPARISON: 10/28/2022 FINDINGS: The heart size is normal. The mediastinum is normal. There is no focal infiltrate or edema. There are no pleural effusions. There are mild chronic changes at the bases. There is no pneumothorax. There is no osseous abnormality. IMPRESSION: No acute cardiopulmonary process Reviewed, Interpreted and Dictated by Matt Dickson MD Transcribed by Janet Lyles Authenticated and [facility]
--- NOTE | 2023-06-14 08:49 | CT_ITS ---
FINAL REPORT TECHNIQUE: Routine axial images were obtained from the lung apices to below the diaphragm following IV contrast administration. Individualized dose reduction techniques using automated exposure control or adjustment of the mA and/or kV according to the patient size were employed. CLINICAL HISTORY: post vomiting CP COMPARISON: 10/28/2022 FINDINGS: The mediastinal vasculature is well opacified. There is a small hiatal hernia. There is mild mucosal thickening of the distal esophagus, possible esophagitis. There are moderate changes of centrilobular emphysema in the upper lungs. Images of the upper abdomen demonstrate benign-appearing cyst in the left kidney. IMPRESSION: Moderate changes of central lobular emphysema. Small hiatal hernia and possible esophagitis. Reviewed, Interpreted and Dictated by Matt Dickson MD Transcribed by Janet Lyles Authenticated and [facility]
--- NOTE | 2023-06-14 08:51 | HMH.EDGENADL ---
Discharge Plan Disposition Patient Disposition: Home, Self-Care Chief Complaint: Chest Pain Prescriptions Prescriptions: No Action omeprazole 40 mg Capsule,Delayed Release(Dr/Ec) 40 mg PO DAILY Referrals Follow up/Referrals: Edwardo Mccall MD [Primary Care Provider] - See instructions Activity Restrictions/Add. Instructions Additional Instructions/Restrictions: At this time it was felt you are safe to be discharged home. If new or worsening symptoms please do not hesitate to return the emergency department. Please take your medication as prescribed. Please follow-up with Dr. Mccall as discussed. Clinical Impressions Clinical Impression: Esophagitis, Hernia, hiatal, Acute viral syndrome Discharge ED Provider: Blaine Buckner General Adult HPI General Chief complaint: Chest Pain Stated complaint: chest congestion, nausea, vomiting, fever, chills Time Seen by Provider: 06/14/23 08:30 Mode of Arrival: Ambulatory Source of Information: Patient Limitations: No Limitations Description of Symptoms (Recalled from ER Triage Doc. by RN): Patient reports chest pain, dizziness, chills, fever and vomiting since Wednesday night. History of Present Illness HPI narrative: Patient is a 47-year-old male with no significant past medical history who presents emergency department for evaluation of chest pain. Patient states that on Wednesday he had 4 episodes of vomiting after drinking approximately 4 beers. After vomiting he developed severe chest pain which he describes as restrictive . There is associated nonspecific dizziness. No stated falls. No other acute complaints at this time. Related Data Home Medications Medication Instructions Recorded Confirmed omeprazole 40 mg capsule,delayed 40 mg PO DAILY gerd 06/14/23 06/14/23 release Allergies Allergy/AdvReac Type Severity Reaction Status Date / Time shellfish derived Allergy Verified 06/14/23 08:49 [facility] Disclaimer: The information contained in this section may have been updated after the patient was seen, as this information can be updated by other users. Social History Smoking Status: Former smoker second hand exposure: Yes alcohol intake: never current occupational status: employed Travel in the last 8 weeks: None ROS Obtained: Yes Systems reviewed as appropriate & no additional complaints except as documented Physical Exam General General appearance: alert and in no apparent distress Head Head exam: atraumatic and normocephalic Eye Eye exam: Present PERRL and EOMI ENT ENT exam: Present mucous membranes moist Neck Neck exam: Present normal inspection Chest Chest inspection: Present normal inspection and symmetric chest wall rise Respiratory Respiratory exam: Present normal lung sounds bilaterally; Absent respiratory distress Cardiovascular Cardiovascular exam: Present regular rate and normal rhythm Abdominal Exam Abdominal exam: Present soft; Absent tenderness Extremities Exam Extremities exam: Present normal inspection Neurological Exam Neurological exam: Present alert, CN II-XII intact and normal gait; Absent motor sensory deficit Psychiatric Psychiatric exam: Present normal affect Skin Skin exam: Present warm and dry Medical Decision Making Riky Inquiry Pt receiving controlled substance: No Vital Signs: 06/14/23 08:33 06/14/23 08:32 06/14/23 09:00 Temperature 97.7 F Temperature Source Oral Pulse Rate 65 74 Pulse Rate [Radial] 75 Respiratory Rate 18 Blood Pressure 165/94 H 145/98 H Blood Pressure [Right Arm] 165/94 H Blood Pressure Mean 120 113 Blood Pressure Mean [Right Arm] 117 Blood Pressure Source [Right Arm] Automatic Cuff Blood Pressure Position [Right Arm] Sitting 02 Sat by Pulse Oximetry 99 98 96 Oxygen Delivery Method Room Air Room Air Room Air 06/14/23 09:30 06/14/23 10:00 06/14/23 10:31 Temperature Temperature S
--- NOTE | 2023-06-14 09:00 | PC.NURSE ---
Checked on pt he was given a pillow with case and warm blanket no other needs at at this time, at bs
[2023-06-14 09:05] LABS: Basophils % 0.6 % (0.1-2.0); Eosinophils # 0.2 K/mm3 (0.0-0.4); Eosinophils % 2.7 % (0.1-12.0); Hematocrit 47.1 % (42.0-52.0); Hemoglobin 15.8 g/dL (14.1-18.0); Lymphocytes # 1.8 K/mm3 (0.7-4.5); Lymphocytes % 26.7 % (10-50); Mean Corpuscular HGB Conc 33.4 g/dL (31.8-35.4); Mean Corpuscular Hemoglobin 30.1 pg (27.0-31.2); Mean Platelet Volume 8.1 fl (7.4-10.4); Monocytes # 0.3 K/mm3 (0.1-1.0); Monocytes % 4.5 % (1.7-9.3); Neutrophils # 4.3 K/mm3 (1.8-7.8); Neutrophils % 65.4 % (37.0-80.0); Platelet Count 236 K/mm3 (142-424); Red Blood Count 5.24 M/mm3 (4.60-6.20); Red Cell Distribution Width 13.4 % (11.5-17.5); White Blood Count 6.6 K/mm3 (4.8-10.8)
--- NOTE | 2023-06-14 09:12 | PC.NURSE ---
pt to ct
[2023-06-14 09:16] LABS: Lipase 126 U/L (23-300)
[2023-06-14 09:17] LABS: Alanine Aminotransferase 31 U/L (12-78); Albumin Level 4.3 g/dl (3.5-5.0); Albumin/Globulin Ratio 1.3 (1.1-1.8); Alkaline Phosphatase 45 U/L (38-126); Anion Gap 13.7 mEq/L (5-15); Aspartate Amino Transferase 34 U/L (17-59); Bilirubin,Total 0.4 mg/dl (0.2-1.3); Blood Urea Nitrogen 7 mg/dl (9-20); Calcium 9.4 mg/dl (8.4-10.2); Carbon Dioxide 23 mmol/L (22.0-30.0); Chloride 106 mmol/L (98-107); Creatinine Clearance Estimated 111 mL/min (50-200); Estimated Glomerular Filt Rate 103 ml/min (>60); GFR (African American) 124 ML/MIN (>60); Globulin 3.3 g/dL (1.3-3.2); Glucose 121 mg/dl (74-100); Potassium 3.7 mmoL/L (3.5-5.1); Sodium 139 mmol/L (136-145); Total Protein,Serum 7.6 g/dl (6.3-8.2)
[2023-06-14 09:27] LABS: Troponin I < 0.01 ng/ml (0.00-0.034)
--- NOTE | 2023-06-14 09:27 | PC.NURSE ---
Rounded on patient. [place] given and told about waiting on xray results. Patient's mom ok with this. Sleeping at this time.
--- NOTE | 2023-06-14 10:07 | PC.NURSE ---
Rounded on patient. [place] given. No other needs at this time. Patient states he is feeling better.
--- NOTE | 2023-06-14 11:16 | PC.NURSE ---
checked on pt he's asleep in bed at bs
--- NOTE | 2023-06-14 11:27 | PC.NURSE ---
3 hour troponin drawn and sent to lab.
[2023-06-14 11:32] LABS: Coronavirus 19, PCR Not Detected (NotDetected); Influenza A, PCR Not Detected (NotDetected); Influenza B, PCR Not Detected (NotDetected)
[2023-06-14 12:45] LABS: Troponin I < 0.01 ng/ml (0.00-0.034)
== END 2023-06-14 13:34 | disposition home or self-care (01) ==
LOC: UTC 08:13 → ER 08:28
PROVIDERS: Emergency Provider Emergency Medicine; PCP Family Medicine
DX: R07.9 Chest pain, unspecified (principal); R42 Dizziness and giddiness; K20.90 Esophagitis, unspecified without bleeding; K44.9 Diaphragmatic hernia without obstruction or gangrene; B34.9 Viral infection, unspecified; Z87.891 Personal history of nicotine dependence
CPT/HCPCS: 71045; 71260; 80053; 83690; 84484; 85025; 87636; 93005; 96374; 96375; 99285; J2405; Q9967

== ENCOUNTER 2023-08-12 12:23 | Day surgery (SDC) | payer OTHER, SELFPAY ==
[2023-08-10 13:54] VITALS: BMI 26.7
--- OUTSIDE RECORDS SUMMARY | 2023-08-12 12:24 | XMS_ITS | Continuity of Care Document ---
Author Name Unknown Organization [facility] Address [address] [address] Phone Care Team Providers Care Emergency Medicine Physician Assistant Name Role Phone Delfino Klaudia BUTLERia Unavailable Unavail able Medications Medication Instructions Dosage Effective Dates (start - stop) Status Comments ondansetron [address] 1 tablet by translingual route every 8 hours for 2 days on top of the tongue where it will dissolve, then swallow 8 MG - Active Lomotil 2.5 mg-0.025 mg tablet take 8 tablet by oral route every day as needed 20 MG - Active trazodone 50 mg tablet take 1 tablet by oral route every day after meals 50 MG - Active lorazepam 1 mg tablet take 1 tablet by o ral route 3 times every day as needed 1 MG - Active duloxetine 60 mg capsule,delayed release take 1 capsule by oral route 2 times every day 60 MG - Active buspirone 10 mg tablet take 3 tablet by oral route every day 30 MG - Active Advance Directives Directive Yes / No Effective Date File Name No Information Encounters Encounter Description Practice Location Reason(s) For Visit Diagnoses Date Provider Providers Copied on Encounter [facility] [address] [place] [address], [place], [place], [id number], [place] tel:[phone]
[2023-08-12 13:24] VITALS: BP 160/80; PULSE 71; RESP 18; TEMP 36.5; O2SAT 97
--- NOTE | 2023-08-12 14:25 | P.PNANES_ITS ---
[facility] Disclaimer: The information contained in this section may have been updated after the patient was seen, as this information can be updated by other users. Medical History Emphysema/COPD History of diverticulitis Pneumonia Surgical History History of colonoscopy Hx of esophagogastroduodenoscopy Family History Other Family history of COPD (chronic obstructive pulmonary disease) Family history of myocardial infarction Social History Smoking Status: Former smoker tobacco type: cigarettes packs per day: 1 second hand exposure: Yes alcohol intake: current substance use type: denies use current occupational status: employed Travel in the last 8 weeks: None [facility] Anesthesia Checklist Patient Identification Patient Identification: Verbal (Name & ) Structural Data Admitted From: Home Planned Operative Procedure/s: egd,colonoscopy Consent for Planned Operative Procedure(s) Verified: Yes Airway Assessment Mallampati Score:: Class II C-Spine Mobility Assessed: Yes TMJ Mobility Assessed: Yes Dentition: Dentures-good fit Neurological Assessment Level of Consciousness: Awake, Alert and Appropriate Anesthesia Plan Anesthesia Risk discussed: Yes Anesthesia Plan: Verified ASA Class: II Anesthesia Type: MAC
[2023-08-12 14:33] VITALS: O2SAT 97
[2023-08-12 14:56] VITALS: BP 103/61; PULSE 66; RESP 16; O2SAT 96
--- NOTE | 2023-08-12 14:57 | HMH.SCOPE ---
Procedure: Date: 08/12/23 Patient Date of :: 1975 Procedure Performed:: EGD with biopsies and dilation Indications:: Abnormal CT scan, dysphagia Performing Provider:: Glynn Kelsey MD Referring Provider:: Edwardo Mccall MD Sedation:: Propofol Procedure:: The gastroscope was gently passed through the incisoral orifice into the oral cavity and under direct visualization the esophagus was intubated. The endoscope was passed down the esophagus, through the stomach, and into the duodenum. Color, texture, mucosa, and anatomy of the esophagus, stomach, and duodenum were carefully examined with the scope. Findings:: Oropharynx: normal Esophagus: normal, distal strip of barretts mucosa, biopsied dysphagia treated with several passes of the 58 [place] bougie dilator EG Junction: intact at 40 cm, small hiatus hernia Cardia: normal Fundus: normal Body: normal Antrum: normal Duodenal bulb: normal Duodenum (second and third portion): normal Impression: Barretts esophagus Dysphagia treated with bougie dilation Specimens:: Esophagus Recommendations:: Repeat EGD with biopsies and dilation in about THREE years or so Complications:: None Estimated blood obtained (mL): 0 Colonoscopy Component Colonoscopy Component Was a colonoscopy performed during today's procedure?: No
--- NOTE | 2023-08-12 15:05 | HMH.SCOPE ---
Procedure: Date: 08/12/23 Patient Date of :: 1975 Procedure Performed:: Colonoscopy with polypectomy Indications:: Colon cancer screening Performing Provider:: Glynn Kelsey MD Referring Provider:: Edwardo Mccall MD Sedation:: Propofol Procedure:: After placing the patient in the left lateral decubitus position, the colonoscopy was gently inserted into the rectum and under direct visualization advanced to the cecum which was identified by transillumination in the right lower quadrant, identification of the ileocecal valve, appendiceal orifice, and cecal strap. Color, texture, mucosa, and anatomy of the colon were carefully examined with the scope. Findings:: Anal canal: normal Rectum: normal Sigmoid colon: 1 cm adenomatous polyp identified and removed with snare. Descending colon: normal without polyps or inflammatory changes Splenic flexure: normal Transverse colon: normal without polyps or inflammatory changes Hepatic flexure: normal Ascending colon: normal without polyps or inflammatory changes Cecum: normal Terminal ileum: not visualized Impression: Sigmoid polyp Specimens:: Colon polyp Recommendations:: Follow up examination in about THREE years or so, sooner if clinically indicated in view of finding of polyp. Complications:: None Estimated blood obtained (mL): 0 Colonoscopy Component Colonoscopy Component Was a colonoscopy performed during today's procedure?: Yes Recommended follow up colonoscopy of at least 10 years?: No If no, follow up colonoscopy recommended in ___ years?: Three Reason for not recommending >/= 10 yr follow-up interval?: Adenomatous polyp
[2023-08-12 15:06] VITALS: BP 125/76; PULSE 64; RESP 17; O2SAT 96
[2023-08-12 15:21] VITALS: BP 130/79; PULSE 72; RESP 16; O2SAT 97
== END 2023-08-12 15:35 | disposition home or self-care (01) ==
PROVIDERS: PCP Family Medicine; Visit Provider Internal Medicine Gastroenterology
PROC: 0DJ08ZZ Inspection of Upper Intestinal Tract, Via Natural or Artificial Opening Endoscopic (ICD-10-PCS; CPT 43235; principal; 2023-08-12 14:00)
DX: Z12.11 Encounter for screening for malignant neoplasm of colon; K22.70 Barrett's esophagus without dysplasia; D12.5 Benign neoplasm of sigmoid colon; R13.10 Dysphagia, unspecified
CPT/HCPCS: 43239; 43248; 45385

== ENCOUNTER 2024-04-17 07:41 | Outpatient (CLI) | payer OTHER, SELFPAY ==
[2024-04-17 09:00] VITALS: PULSE 63; PULSE 68
[2024-04-17] MEDS: ALBUTEROL 0.083% 2.5 MG/3 ML NEB IH (09:00)
== END 2024-04-17 23:59 | disposition home or self-care (01) ==
LOC: RT 07:42
PROVIDERS: PCP Family Medicine; Visit Provider Family Medicine
DX: R06.02 Shortness of breath (principal)
CPT/HCPCS: 94060; 94640; 94726; 94729; J7613

== ENCOUNTER 2025-01-17 13:54 | Outpatient (CLI) | payer BC, SELFPAY ==
--- NOTE | 2025-01-17 13:58 | XR_ITS ---
FINAL REPORT CLINICAL HISTORY: lt knee pain FINDINGS: LEFT KNEE 3 views of the left knee were obtained. There is no acute fracture or dislocation. There is lateral patellar tilt seen on the sunrise view suggestive of patellar tracking abnormality. Soft tissues are unremarkable. IMPRESSION: No acute bony abnormality. Reviewed, Interpreted and Dictated by Latisha Almaraz MD Transcribed by Zaria Phillips Authenticated and [facility]
== END 2025-01-17 23:59 | disposition home or self-care (01) ==
LOC: RAD 13:56
PROVIDERS: PCP Family Medicine; Visit Provider Physician Assistant
DX: M25.562 Pain in left knee (principal); M22.8X2 Other disorders of patella, left knee
CPT/HCPCS: 73562

== ENCOUNTER 2025-08-08 11:48 | Outpatient (CLI) | payer BC, SELFPAY ==
--- OUTSIDE RECORDS SUMMARY | 2024-04-13 04:00 | XMS_ITS ---
Author Organization [facility] Address [address] [facility] [address] [facility] [address] [place] [id number] Care Team Providers Care Cardiology Consultants Name Role Phone Edwardo Mccall Primary Care Provider [phone] Allergies No Known Allergies Results Component Value Reference Range Notes CBC Venipuncture (in house) Reviewed date:04/13/2024 10:43:39 AM Interpretation: Performing Lab: Notes/Report: wbc 5.6 3.5 - 10 lymph 23.7% 15 - 50 mid 6.7% 2 - 15 gran 69.6% 35 - 80 rbc 4.98 3.5 - 5.5 hgb 15.2 11.5 - 16.5 hct 44.2 35 - 55 mcv 88.7 75 - 100 mch 30.5 25 - 35 mchc 34.4 31 - 38 platlet 213 100 - 400 P-Vitamin B12 Reviewed date:04/20/2024 09:10:27 AM Interpretation: Normal Performing Lab: Notes/Report: Test performed by [facility] [address] [place] [address] , [place] [address] Jourdan Pickard MD, Beet Flumer CLIA: [id number] Vitamin B12 195 813-7752 pg/mL P-Comprehensive Metabolic Pa winifred (CMP) Reviewed date:04/20/2024 09:10:27 AM Interpretation:gluc 105 Performing Lab: Notes/Report: Test performed by [facility] [address] [place] [address] , [place] [address] Jourdan Pickard MD, Beet Flumer CLIA: [id number] Sodium 137 135-145 mmol/L Potassium 4.1 3.5-5.3 mmol/L Chloride 101 97-108 mmol/L CO2 25 22-32 mmol/L Glucose 105 65-99 mg/dL BUN 10 6-20 mg/dL Creatinine 0.86 0.70-1.30 mg/dL Calcium 10.1 8.6-10.4 mg/dL eGFR by Creatinine 105 >59 mL/min/1.73m2 Protein 7.4 6.0-8.3 g/dL Albumin 4.6 3.5-5.3 g/dL Alkaline Phosphatase 56 40-129 IU/L ALT (SGPT) 35 <5-55 IU/L AST (SGOT) 23 <5-46 IU/L Bilirubin, Total 0.4 <0.2-1.2 mg/dL A/G Ratio 1.6 1.1-2.5 mg/dL P-Testosterone Total (Adult Male) Reviewed date:04/20/2024 09:10:27 AM Interpretation: Normal Performing Lab: Notes/Report: Test performed by [facility] [address] , [address], [place] [address] Jourdan Pickard MD, Beet Flumer CLIA: [id number] Testosterone Total 763.00 264.00-916.00 ng/dL P-Magnesium Reviewed date:04/20/2024 09:10:27 AM Interpretation: Normal Performing Lab: Notes/Report: Test performed by [facility] [address] , [address] [id number] Jourdan Pickard MD, Beet Flumer CLIA: [id number] Magnesium 2.0 1.6-2.4 mg/dL P-Phosphorus Reviewed date:04/20/2024 09:10:27 AM Interpretation: Normal Performing Lab: Notes/Report: Test performed by [facility] [address] , [address], [place] [address] Jourdan Pickard MD, Beet Flumer CLIA: [id number] Phosphorus 3.3 2.5-4.5 mg/dL P-TSH reflex to FT4 Reviewed date:04/20/2024 09:10:27 AM Interpretation: Normal Performing Lab: Notes/Report: Test performed by [facility] [address] , [place] [address] Jourdan Pickard MD, Beet Flumer CLIA: [id number] TSH reflex to FT4 2.11 0.43-5.25 mU/L P-Vitamin D 25-Hydroxy Reviewed date:04/20/2024 09:10:27 AM Interpretation:26.6 Performing Lab: Notes/Report: Test performed by [facility], [address] , [address], [place] [address] Jourdan Pickard MD, Beet Flumer CLIA: [id number] Vitamin D 25-Hydroxy 26.6 30.0-100.0 ng/mL Interpretation of Vitamin D 25 OH: < 20 ng/mL - Deficiency 20 - 29 ng/mL - Insufficiency 30 - 100 ng/mL - Sufficiency > 100 ng/mL - Super-therapeutic- toxicity may occur above this level. Clinical correlation required. P-Vitamin B1 (Thiamine), Ser um/Plasma, LC/MS/MS Reviewed date:04/20/2024 09:10:27 AM Interpretation:3 Performing Lab: Notes/Report: Vitamin B1 (Thiamine), Serum/Plasma, LC/MS/MS 3 4-15 nmol/L CLIA Number: [id number] INTERPRETIVE DATA: Vitamin B1, Plasma Thiamine (vitamin B1) is reported. However, thiamine diphosphate (TDP), the biologically active form of thiamine, is not found in measurable concentrations in plasma, and is best determined in whole blood specimens. Plasma thiamine concentration reflects recent intake rather than body stores. This test was developed and its performance characteristics determined by [facility] It has not been cleared or approved by the [place] Food and Drug Administration. This test was performed in a CLIA certified laboratory and is intended for clinical purposes. Performed By: [facility] [address] [place] [address] Beet Flumer: Erik Bennett MD, PhD Pulmonary Function Complete Reviewed date:05/03/2024 08:52:35 AM Interpretation: Performing Lab: Notes/Report: Reason For Referral Reason [facility] Diagnosis 1 Polyarthralgia (M25. 50) Diagnosis 2 Rheumatoid arthritis involving multiple sites with positive rheumatoid factor (M05.79) Referral Organization [facility] Referring Provider First Name Edwardo Referring Provider Last Name Stefany Referring Provider Speciality Family Pra ctice Referred Provider Rheumatology, . Referred Provider Specialty Rheumatology General Notes Jennifer Mason 04/13/20 24 9:56:16 AM > faxed referral [facility] Referral Priority Routine REASON FOR VISIT 6 months with fasting labs Medications Medication SIG (Take, Route, Fr equency, Duration) Notes Start Date End Date Status Omeprazole 40 MG 1 cap(s) Orally Two times a day; Duration: 90 days Active Problems Problem Type SNOMED Code ICD Code Onset Dates Problem Status W/U Status Risk Notes Problem Rheumatoid arthritis (35799009) Rheumatoid arthritis involving multiple sites with positive rheumatoid factor (M05.79) Active confirmed Vital Signs Blood pressure systolic 130 mm Hg 04/13/20 24 Blood pressure diastolic 80 mm Hg 024 Heart Rate 64 /min 04/13/2024 Height 64 in 04/13/2024 Weight 160 lbs 04/13/2024 BMI 27.46 kg/m2 04/13/2024 Encounters Encounter Location Date Provider Diagnosis [facility] [address] [facility] [address] [place], [place] [phone] 04/13/2024 Edwardo Mccall Gastroesophageal ref lux disease, unspecified whether esophagitis present K21.9 ; Fatigue, unspecified type R53.83 ; SOB (shortness of breath) R06.02 ; Polyarthralgia M25.50 and Rheumatoid arthritis involving multiple sites with positive rheumatoid factor M05.79 Assessments Encounter Date Diagnosis (ICD Code) Assessment Notes Treatment Notes Treatment Clinical Notes Section Notes 04/13/2024 Gastroesophageal reflux disease, unspecified whether esophagitis present (ICD-10 - K21.9) 04/13/2024 Fatigue, unspecified type (ICD-10 - R53.83) 04/13/2024 SOB (shortness of breath) (ICD-10 - R06.02) 04/13/2024 Polyarthralgia (ICD-10 - M25.50) 04/13/2024 Rheumatoid arthritis involving multiple sites with positive rheumatoid factor (ICD-10 - M05.79) Plan Of Treatment Medication Medication Name Sig Start Date Stop Date Notes Omeprazole 40 MG 1 cap(s) Orally Two times a day; Duration: 90 days Referrals Referral Date Details 04/13/2024 04/13/2024, [facility], . Rheumatology Next Appt Details Follow Up: via phone to repo rt test results, Reason: Progress Notes * EDDIE CHAPAWDOB:1975 (49 yo M)Acc No.[id number]:04/13/2024 Progress Notes Patient: FREDERIC OLIVARES Provider: Sharmila Mccall M.D. :1975 A ge:48 Y S ex:Male Date:04/13/2024 Address:[address] [place] [address] , [place], [id number] Subjective: * Chief Complaints: * 1 . 6 months with fasting labs. * HPI: G astroenterology: 48 year old male presents with c/o Acid Reflux P t here for 6 mo f/u on GERD, states he is doing well on Omeprazole . N eurology: c/o headache P t complains of really bad headaches for about 2 weeks. States he is tired and has no energy. Pt feels like he is in a fog and is light-headed and dizzy today. R heumatology: c/o joint pain P t complains of multiple joint pain. States he was dx with RA in the past and would like to see Rheumatology. Pt states that pain is progressively worsening. Pt has been taking 800 mg Ibuprofen 2-3 times a day and it does help with the pain for a little while. * ROS: D ERMATOLOGY: no R caryn. n o H elio. G ASTROENTEROLOGY: no N ausea. n o V omiting. U ROLOGY: no D ifficulty urinating. n o B lood in urine. * Medical History: A llergis Rhinits, Rhuematoid Arthritis, Osteoarthritis, Psoriasis, 50 pack year smoking history as of 2022, quit smoking in 2021, Esophageal stricture, Colon polyps, Dx: 2022, needs scope in 2025, Brooke's esophagus, Dx:2022, needs scope in 2025. * Surgical History: R T Hand Tendon Repair 1993, EGD 2017, Colonoscopy 2017. * Hospitalization/Major Diagno stic Procedure: D enies Past Hospitalization. * Family History: F ather: diagnosed with Diabetes, Heart Disease. 2 son(s) , 4 daughter(s) . . * Social History: C URRENT TOBACCO USE: No . C affeine: yes, frequency: 8 Per Day. Alcohol: yes, Socially. * Medications: T aking Omeprazole 40 MG Capsule Delayed Release 1 cap(s) Orally Two times a day , Medication List reviewed and reconciled with the patient * Allergies: N .K.D.A. Objective: * Vitals: W t:160, Temp:98.0, BP:130/80, HR:64, Nurse:karen, Ht: 64, BMI:27.46. * Examination: G eneral Examination: General Appearance: N AD. N mari: no lymphadenopathy, thyroid normal. H eart: R SR. L ungs: c lear to auscultation. P eripheral pulses: n ormal (2+) bilaterally. E xtremities: n o leg edema. Assessment: * Assessment: 1. G astroesophageal reflux disease, unspecified whether esophagitis present - K21.9 (Primary)? 2. F atigue, unspecified type - R53.83 3 . S OB (shortness of breath) - R06.02 4 . P olyarthralgia - M25.50 5 . R heumatoid arthritis involving multiple sites with positive rheumatoid factor - M05.79 Plan: * Treatment: 2. F atigue, unspecified type L AB: P-Vitamin B12 (Collection Date & Time - 04/13/2024 08:30 AM) N ormal Value Reference Range V itamin B12 223 153-8999 - pg/mL * Liset Martines 04/20/2024 9:10: 19 AM >See phone encounter ?LAB: P-Comprehensive Metabolic Panel (CMP) (Collection Date & Time - 04/13/2024 08:30 AM)?gluc 105* Value Reference Range A /G Ratio 1.6 1.1-2.5 - mg/dL * A lbumin 4.6 3.5-5.3 - g/dL * A lkaline Phosphatase 56 40-129 - IU/L * A LT (SGPT) 35 <5-55 - IU/L * A ST (SGOT) 23 <5-46 - IU/L * B ilirubin, Total 0.4 <0.2-1.2 - mg/dL * B UN 10 6-20 - mg/dL * C alcium 10.1 8.6-10.4 - mg/dL * C hloride 101 97-108 - mmol/L * C O2 25 22-32 - mmol/L * C reatinine 0.86 0.70-1.30 - mg/dL * G lucose 105 H 65-99 - mg/dL * P otassium 4.1 3.5-5.3 - mmol/L * S odium 137 135-145 - mmol/L * P rotein 7.4 6.0-8.3 - g/dL * e GFR by Creatinine 105 >59 - mL/min/1.73m2 * Liset Martines 04/20/2024 9:10: 19 AM >See phone encounter ?LAB: P-Testosterone Total (Adult Male) (Collection Date & Time - 04/13/2024 08:30 AM)?Normal* Value Reference Range T estosterone Total (Adult Male) 763.00 264.00-91 6.00 - ng/dL * ConradLiset 04/20/2024 9:10: 19 AM >See phone encounter ?LAB: P-Magnesium (Collection Date & Time - 04/13/2024 08:30 AM)?Normal* Value Reference Range M agnesium 2.0 1.6-2.4 - mg/dL * ConradLiset 04/20/2024 9:10: 19 AM >See phone encounter ?LAB: P-Phosphorus (Collection Date & Time - 04/13/2024 08:30 AM)?Normal* Value Reference Range P hosphorus 3.3 2.5-4.5 - mg/dL * ConradLiset 04/20/2024 9:10: 19 AM >See phone encounter ?LAB: P-TSH reflex to FT4 (Collection Date & Time - 04/13/2024 08:30 AM)? Normal* Value Reference Range T SH reflex to FT4 2.11 0.43-5.25 - mU/L * Liset Martines 04/20/2024 9:10: 19 AM >See phone encounter ?LAB: P-Vitamin D 25-Hydroxy (Collection Date & Time - 04/13/2024 08:30 AM)? 26.6* Value Reference Range V itamin D 25-Hydroxy 26.6 L 30.0-100.0 - ng/mL * Liset Martines 04/20/2024 9:10: 19 AM >See phone encounter ?LAB: P-Vitamin B1 (Thiamine), Serum/Plasma, LC/MS/MS (Collection Date & Time - 04/13/2024 08:30AM)?3* Value Reference Range V itamin B1 (Thiamine), Serum/Plasma, LC/MS/MS 3 L 4-15 - nmol/L * Liset Martines 04/20/2024 9:10: 19 AM >See phone encounter ?LAB: CBC Venipuncture (in house) (Collection Date & Time - 04/13/2024)* Value Reference Range w bc 5.6 3.5 - 10 * l ymph 23.7% 15 - 50 * m id 6.7% 2 - 15 * g ran 69.6% 35 - 80 * r bc 4.98 3.5 - 5.5 * h gb 15.2 11.5 - 16.5 * h ct 44.2 35 - 55 * m cv 88.7 75 - 100 * m ch 30.5 25 - 35 * m chc 34.4 31 - 38 * p latlet 213 100 - 400 * Emily Serna 04/13/2024 10:33:5 5 AM > , Provider reviewed results while patient in office. 3.?SOB (shortness of breath)?Imaging: Pulmonary Function Complete (Performed Date - 04/17/2024)* Jennifer Mason 04/13/2024 10:07 :02 AM > CPT code 91888; no auth required; faxed to Shilpa Ma 04/13/2024 10:35:00 AM > 04/17/24 @8amLiset Martines 05/03/2024 8:52:30 AM > See phone encounter 4.?Polyarthralgia? Referral To:. Rheumatology??Rheumatology ?Reason:[facility] 5.?Rheumatoid arthritis involving multiple sites with positive rheumatoid factor ? Referral To:. Rheumatology??Rheumatology ?Reason:[facility] * Procedure Codes: 8 5025 CBC WITH AUTO DIFF * Follow Up: v ia phone to report test results * Images: Billing Information: * Visit Code: 28573 Office Visit, Est Pt., Level 4. * Procedure Codes: 21411 CBC WITH AUTO DIFF. * Electronic signature of Susan Mccall MD on 08/08/2025 at 11:51 AM EST Sign off status: Pending * Provider: Sharmila Mccall M.D. Date: 0 04/13/2024 Generated for German tena/Paul/Mansi on: 1 10/08/2024 11:51 AM EST History and Physical Notes * HPI (History of Present Illness) Category Sub-Category Detail Notes Category Not es Neurology headache Pt complains of really bad headaches for about 2 weeks. States he is tired and has no energy. Pt feels like he is in a fog and is light-headed and dizzy today Gastroenterology Acid Reflux Pt here for 6 m o f/u on GERD, states he is doing well on Omeprazole Rheumatology joint pain Pt complains of multiple joint pain. States he was dx with RA in the past and would like to see Rheumatology. Pt states that pain is progressively worsening. Pt has been taking 800 mg Ibuprofen 2-3 times a day and it does help with the pain for a little while Examination Category Sub-Category Detail Notes Category Not es General Examination Heart: RSR Lungs: clear to auscultatio n Extremities: no leg edema General Appearance: NAD Neck: no lymphadenopathy, thyroid normal Peripheral pulses: normal (2+) bilatera lly Consultation Request Notes Referral Date Referring Provider Referred Provider Not es 04/13/2024 Edwardo Mccall Rheumatology, . [facility] [place]
--- OUTSIDE RECORDS SUMMARY | 2024-10-11 09:45 | XMS_ITS ---
Author Organization [facility] Address [address] [facility] [address] [facility] [address] [place] [phone] Care Team Providers Care Sorting Livestock Worker Name Role Phone Edwardo Mccall Primary Care Provider Allergies No Known Allergies Results Component Value Reference Range Notes CBC Fingerstick (in house) Reviewed date:10/11/2024 03:15:35 PM Interpretation: Performing Lab: Notes/Report: wbc 8.5 3.5 - 10 lym 19.1% 15 - 50 mid 5.3% 2 - 15 gran 75.6% 35 - 80 rbc 4.68 3.5 - 5.5 hgb 15.2 11.5 - 16.5 hct 44.8 35 - 55 mcv 95.7 75 - 100 mch 32.4 25 - 35 mchc 33.9 31 - 38 plat 195 100 - 400 REASON FOR VISIT congestion & earache with drainage Medications Medication SIG (Take, Route, Frequency, Duration) Notes Start Date End Date Status Cefdinir 300 MG 1 cap(s) Orally Two times a day; Duration: 7 days 10/11/2024 Active Albuterol Sulfate HFA 108 (90 Base) MCG/ACT 1 puff as needed Inhalation every 4 hrs 10/11/2024 Active Methotrexate Sodium 2.5 MG 8 tablets Ora lly Once a week Active Omeprazole 40 MG 1 cap(s) Orally Two times a day; Duration: 90 days Active predniSONE 1 MG 3 tablets with food or milk Orally Once a day Active Vital Signs Blood pressure systolic 126 mm Hg 10/11/19 25 Blood pressure diastolic 80 mm Hg 025 Heart Rate 75 /min 10/11/2024 Height 64 in 10/11/2024 Weight 168 lbs 10/11/2024 BMI 28.83 kg/m2 10/11/2024 Encounters Encounter Location Date Provider Diagnosis [facility] [address] [place] [phone] 10/11/2024 Edwardo Mccall Acute URI J06.9 and SOB (shortness of breath) R06.02 Assessments Encounter Date Diagnosis (ICD Code) Assessment Notes Treatment Notes Treatment Clinical Notes Section Notes 10/11/2024 Acute URI (ICD-10 - J06.9) 10/11/2024 SOB (shortness of breath) (ICD-10 - R06.02) Plan Of Treatment Medication Medication Name Sig Start Date Stop Date Notes Cefdinir 300 MG 1 cap(s) Orally Two times a day; Duration: 7 days 10/11/2024 Albuterol Sulfate HFA 108 (9 0 Base) MCG/ACT 1 puff as needed Inhalation every 4 hrs 10/11/2024 Next Appt Details Follow Up: prn, Reason: Progress Notes * EDDIE CHAPACARLIOB:1975 (49 yo M)Acc No.[id number]:10/11/2024 Progress Notes Patient: FREDERIC OLIVARES Provider: Sharmila Mccall M.D. :1975 A ge:48 Y S ex:Male Date:10/11/2024 Address:[address] [place], [place] [address], [place], [id number] Subjective: * Chief Complaints: * 1 . Congestion & earache with drainage. * HPI: E NT/respiratory: 48 year old male presents with c/o cough P t complains of dry without any sputum production cough. Pt states he feels like he has some chest congestion and needs to cough stuff up but cannot get it up . c/o ear pain P t complains of lt ear pain and drainage for about 2 weeks. * ROS: D ERMATOLOGY: no R caryn. [...] Alcohol: yes, Socially. * Medications: T aking predniSONE 1 MG Tablet 3 tablets with food or milk Orally Once a day , Taking Methotrexate Sodium 2.5 MG Tablet 8 tablets Orally Once a week , Taking Omeprazole 40 MG Capsule Delayed Release 1 cap(s) Orally Two times a day , Medication List reviewed and reconciled with the patient * Allergies: N .K.D.A. Objective: * Vitals: W t:168, Temp:98.3, BP:126/80, HR:75, O2 Sat:98% on RA, Nurse:karen, Ht: 64, BMI:28.83. * Examination: E NT/Respiratory: General Appearance: N AD. E yes: P ERRLA, sclera clear. E ars: a uditory canals normal bilaterally, TM's are both red with small effusions.?Oral cavity : erythema without exudate on pharynx. N mari : n o cervical lymphadenopathy. H eart : R RR, normal S1 S2. L ungs: c lear to auscultation bilaterally. ? Assessment: * Assessment: 1. A cute URI - J06.9 (Primary) 2 . S OB (shortness of breath) - R06.02? Plan: * Treatment: Value Reference Range w bc 8.5 3.5 - 10 * l ym 19.1% 15 - 50 * m id 5.3% 2 - 15 * g ran 75.6% 35 - 80 * r bc 4.68 3.5 - 5.5 * h gb 15.2 11.5 - 16.5 * h ct 44.8 35 - 55 * m cv 95.7 75 - 100 * m ch 32.4 25 - 35 * m chc 33.9 31 - 38 * p lat 195 100 - 400 * Emily Serna 10/11/2024 3:10:30 PM > , Provider reviewed results while patient in office. 2.?SOB (shortness of breath)? Start Albuterol Sulfate HFA Aerosol Solution, 108 (90 Base) MCG/ACT, 1 puff as needed, Inhalation, every 4 hrs, 1, Refills 0.?? * Procedure Codes: 3 6416 CAPILLARY BLOOD DRAW, 76824 CBC WITH AUTO DIFF * Follow Up: p rn * Images: Billing Information: * Visit Code: 71806 Office Visit, Est Pt., Level 3. * Procedure Codes: 36490 CAPILLARY BLOOD DRAW. 23888 CBC WITH AUTO DIFF. * Electronic signature of Susan Mccall MD on 08/08/2025 at 11:51 AM EST Sign off status: Pending * Provider: Sharmila Mccall M.D. Date: 0 10/11/2024 Generated for Lluviai ng/Deepakg/eTransmitting on: 10/08/2024 11:51 AM EST History and Physical Notes * HPI (History of Present Illness) Category Sub-Category Detail Notes Category Not es ENT/respiratory ear pain Pt complains of lt ear pain and drainage for about 2 weeks cough Pt complains of dry without any sputum production cough. Pt states he feels like he has some chest congestion and needs to cough stuff up but cannot get it up Examination Category Sub-Category Detail Notes Category Not es ENT/Respiratory Oral cavity : erythema without exudate on pharynx Ears: auditory canals norm al bilaterally, TM's are both red with small effusions Neck : no cervical lymphade nopathy Heart : RRR, normal S1 S2 Lungs: clear to auscultatio n bilaterally General Appearance: NAD Eyes: PERRLA, sclera clear
--- OUTSIDE RECORDS SUMMARY | 2025-04-11 06:45 | XMS_ITS ---
[facility] Organization [facility] Address [address] [facility] [place] [address] [facility] [address] [place] [id number] Care Team Providers Care Second Worker Name Role Phone Edwardo Mccall Primary Care Provider [phone] Allergies No Known Allergies Results Component Value Reference Range Notes CBC Fingerstick (in house) Reviewed date:04/11/2025 12:40:38 PM Interpretation: Performing Lab: Notes/Report: wbc 7.5 3.5 - 10 lym 16.0% 15 - 50 mid 13.0% 2 - 15 gran 71.0% 35 - 80 rbc 5.27 3.5 - 5.5 hgb 16.4 11.5 - 16.5 hct 48.7 35 - 55 mcv 92.3 75 - 100 mch 31.2 25 - 35 mchc 33.8 31 - 38 plat 215 100 - 400 REASON FOR VISIT congestion,coughing and no energy Medications Medication SIG (Take, Route, Frequency, Duration) Notes Start Date End Date Status Albuterol Sulfate HFA 108 (90 Base) MCG/ACT 1 puff as needed Inhalation every 4 hrs 10/11/2024 Active Humira (2 Syringe) 40 MG/0.8ML as directed Subcutaneous Act veronica Omeprazole 40 MG Take 1 capsule by [facility] twice daily; Duration: 90 Active Zithromax Z-Martinez 250 MG as directed Orall y daily; Duration: 5 days 04/11/2025 Active Vital Signs Blood pressure systolic 140 mm Hg 04/11/20 25 Blood pressure diastolic 84 mm Hg 025 Heart Rate 80 /min 04/11/2025 Height 64 in 04/11/2025 Weight 165.8 lbs 04/11/2025 BMI 28.46 kg/m2 04/11/2025 Encounters Encounter Location Date Provider Diagnosis [facility] [address] [place] [id number] 04/11/2025 Edwardo Mccall Acute URI J06.9 Assessments Encounter Date Diagnosis (ICD Code) Assessment Notes Treatment Notes Treatment Clinical Notes Section Notes 04/11/2025 Acute URI (ICD-10 - J06.9) Plan Of Treatment Medication Medication Name Sig Start Date Stop Date Notes Zithromax Z-Martinez 250 MG as directed Orall y daily; Duration: 5 days 04/11/2025 Next Appt Details Follow Up: prn, Reason: Progress Notes * EDDIE CHAPAWDOB:1975 (49 yo M)Acc No.[id number]:04/11/2025 Progress Notes Patient: FREDERIC OLIVARES Provider: Sharmila Mccall M.D. :1975 A ge:49 Y S ex:Male Date:04/11/2025 Address:[address] [place] [address] , [facility], [id number] Subjective: * Chief Complaints: * 1 . Congestion,coughing and no energy. * HPI: E NT/respiratory: 49 year old male presents with c/o cough P t complains of dry without any sputum production cough for about 3 days. Asscoiated with body aches, congestion, sneezing, dizziness and fatigue. * ROS: D ERMATOLOGY: no R caryn. [...] Alcohol: yes, Socially. * Medications: T aking Humira (2 Syringe) 40 MG/0.8ML Prefilled Syringe Kit as directed Subcutaneous , Taking Albuterol Sulfate HFA 108 (90 Base) MCG/ACT Aerosol Solution 1 puff as needed Inhalation every 4 hrs , Taking Omeprazole 40 MG Capsule Delayed Release Take 1 capsule by mouth twice daily , Discontinued predniSONE 1 MG Tablet 3 tablets with food or milk Orally Once a day , Discontinued Methotrexate Sodium 2.5 MG Tablet 8 tablets Orally Once a week , Discontinued Cefdinir 300 MG Capsule 1 cap(s) Orally Two times a day , Medication List reviewed and reconciled with the patient * Allergies: N .K.D.A. Objective: * Vitals: W t: 165.8, Temp: 98.3, BP: 140/84, HR: 80, O2 Sat: 98% on RA, Nurse: karen, Ht: 64, BMI:28.46. * Examination: E NT/Respiratory: General Appearance: N AD. O ral cavity : e rythema without exudate on pharynx. N mari : S hotty, nontender adenopathy. H eart : R RR, normal S1 S2. L ungs: c lear to auscultation bilaterally. Assessment: * Assessment: 1. Trino koenig URI - J06.9 (Primary) Plan: * Treatment: Value Reference Range w bc 7.5 3.5 - 10 * l ym 16.0% 15 - 50 * m id 13.0% 2 - 15 * g ran 71.0% 35 - 80 * r bc 5.27 3.5 - 5.5 * h gb 16.4 11.5 - 16.5 * h ct 48.7 35 - 55 * m cv 92.3 75 - 100 * m ch 31.2 25 - 35 * m chc 33.8 31 - 38 * p lat 215 100 - 400 * Emily Serna 04/11/2025 11:57: 41 AM EDT > Provider reviewed results while patient in office. * Procedure Codes: 3 5345 CAPILLARY BLOOD DRAW, 78962 CBC WITH AUTO DIFF, 1036F TOBACCO NON-USER * Follow Up: p rn * Images: Billing Information: * Visit Code: 96022 Office Visit, Est Pt., Level 3. * Procedure Codes: 53271 CAPILLARY BLOOD DRAW. 27769 CBC WITH AUTO DIFF. 1036F TOBACCO NON-USER. * Electronic signature of Susan Mccall MD on 08/08/2025 at 11:51 AM EST Sign off status: Pending * Provider: Sharmila Mccall M.D. Date: 0 04/11/2025 Generated for German tena/Paul/eTransmitting on: 1 10/08/2024 11:51 AM EST History and Physical Notes * HPI (History of Present Illness) Category Sub-Category Detail Notes Category Not es ENT/respiratory cough Pt complains of dry without any sputum production cough for about 3 days. Asscoiated with body aches, congestion, sneezing, dizziness and fatigue Examination Category Sub-Category Detail Notes Category Not es ENT/Respiratory Oral cavity : erythema without exudate on pharynx Neck : Shotty, nontender ad enopathy Heart : RRR, normal S1 S2 Lungs: clear to auscultatio n bilaterally General Appearance: NAD
--- NOTE | 2025-08-08 11:51 | XR_ITS ---
FINAL REPORT CLINICAL HISTORY: RHEU ARTHRITIS, fall 2 wks ago, possible pinched nerve COMPARISON: none FINDINGS: LUMBOSACRAL SPINE SERIES Five views of the lumbosacral spine were obtained. There is no fracture present. There is no malalignment. There is mild facet arthropathy in the lower lumbar spine. The disc spaces are well preserved. IMPRESSION: Mild facet degeneration. No acute bony abnormality of the lumbosacral spine. Reviewed, Interpreted and Dictated by Eric Ferris MD Transcribed by Janet Lyles Authenticated and [facility]
--- OUTSIDE RECORDS SUMMARY | 2025-08-08 11:51 | XMS_ITS | Encounter Summary ---
Author Organization [employer] ([place], [place], [place], [place], [place]) Address [address] [place] [address] Care Team Providers Care Applied Computer Science Professor Name Role Phone Unavailable Primary Care Provider Unavailabl e Encounter Details Date Type Department Care Team (Late st Contact Info) Description 05/22/[address] [facility] [place] [address] [place] [address] ProviderPamella MD [address] [place], [place] [address] Social History Tobacco Use Types Packs/Day Years Used Date Smoking Tobacco: Never Assessed Sex and Gender Information Value Date Recorded Sex Assigned at Not on file Legal Sex Male 7:28 PM CDT Gender Identity Not on file Sexual Orientation Not on file documented as of this encounter Miscellaneous Notes * Cerner Conversion Note - Historical ProviderMD - 05/22/2019 5:37 PM CDT Electronically signed by Eliseo [facility] Conversion Book Packer Cerner at 01/13/2023 8:26 AM CDT documented in this encounter Plan of Treatment Not on file documented as of this encounter Visit Diagnoses Not on filedocumented in this encounter
--- OUTSIDE RECORDS SUMMARY | 2025-08-08 11:51 | XMS_ITS | Encounter Summary ---
Author Organization [employer] ([place], [place], [place], [place], [place]) Address [address] [place] [address] Care Team Providers Care Air Pollution Specialist Name Role Phone Unavailable Primary Care Provider Unavailabl e Encounter Details Date Type Department Care Team (Late st Contact Info) Description 05/22/2019 Transcribed Document [facility] [place] Medicine [facility] [address] ProviderPamella MD [address] [place] [address] Social History Tobacco Use Types Packs/Day Years Used Date Smoking Tobacco: Never Assessed Sex and Gender Information Value Date Recorded Sex Assigned at Not on file Legal Sex Male 7:28 PM CDT Gender Identity Not on file Sexual Orientation Not on file documented as of this encounter Miscellaneous Notes * Cerner Conversion Note - Pamella ProviderMD - 05/22/2019 2:29 PM CDT ED Triage Entered On: 05/22/2019 14:54 EDT Performed On: 05/22/2019 14:50 EDT by Karly Varner, NUT ORCHARDIST Triage Across the Room Triage Date/Time : 05/22/2019 14:50 EDT Chief Complaint : patient with laceration to right thumb, states cut it on metal 30 mins joint maker machine. Karly Varner, RN - 05/22/2019 14:50 EDT DCP GENERIC CODE Tracking Acuity : 4 - Non - Urgent Tracking Group : [facility] ED Karly Varner RN - 05/22/2019 14:50 EDT Mode of Arrival : Ambulatory Transported to ED by : Private vehicle To Room Via : Ambulate Accompanied By : Unaccompanied ED Vital Signs : Document Height & Weight : Document ED Allergies : Document ED Reason for Visit : Document Tetanus Immunization : Unknown Tried to Harm Yourself in the Past? : No Thoughts of Harming/Killing Yourself : No Recent Thoughts of Harming/Killing Others : No Reset Merchandiser Needed : No Karly Varner RN - 05/22/2019 14:50 EDT Infectious Disease History Infectious Disease History : Chicken pox/Shingles Active Surveillance Screen Assessment : Patient does not meet any of above criteria Active Surveillance Screen Negative : Yes Fever/Chills Last 48 Hours : No Travel To Regions with Travel Advisories : No Travel Outside [place] Within Last 30 Days : No Contact With Traveler to Advisory Region : No Tuberculosis Symptoms : None Karly Varner RN - 05/22/2019 14:50 EDT Vital Signs ED Temperature Source : Oral Temperature Mode : Fahrenheit Temperature, Fahrenheit : 98.1 Deg F ED Pain : Yes Clinical Temperature, C : 36.7 Deg C Oxygen Therapy Mode : Room air Peripheral Pulse Rate : 76 bpm Respiratory Rate : 18 Breaths/Min Systolic Blood Pressure : 142 mmHg (HI) Diastolic Blood Pressure : 86 mmHg Oxygen Saturation : 98 % Karly Varner RN - 05/22/2019 14:50 EDT Allergy (As Of: 05/22/2019 14:54:04 EDT) Allergies (Active) No Known Medication Allergies Estimated Onset Date: Unspecified ; Created By: RUBÉN SHARMA RN; Reaction Status: Active ; Category: Drug ; Substance: No Known Medication Allergies ; Type: Allergy ; Updated By: RUBÉN SHARMA RN; Reviewed Date: 05/22/2019 14:51 EDT Diagnosis Control ED (As Of: 05/22/2019 14:54:04 EDT) Problems(Active) No Chronic Problems (Cerner :NKP ) Name of Problem: No Chronic Problems ; Recorder: RUBÉN SHARMA RN; Code: NKP ; Last Updated: 12/31/2016 13:56 EDT ; Life Cycle Date: 12/31/2016 ; Life Cycle Status: Active ; Vocabulary: Luis Diagnoses(Active) Finger pain-swelling Date: 05/22/2019 ; Diagnosis Type: Reason For Visit ; Confirmation: Complaint of ; Clinical Dx: Finger pain-swelling ; Classification: Medical ; Clinical Service: Emergency medicine ; Code: PNED ; Probability: 0 ; Diagnosis Code: [id number] ED Height and Weight Height Source : Stated Height Entry Format : [place] Height, Feet : 5 ft(Converted to: 152 cm, 60 Inch) Height, Inches : 4 Inch(Converted to: 0 ft 4 Inch, 10.16 cm) Clinical Height : 162.56 cm Weight Source, ED : Critical estimated dosing weight Weight Entry Format : [place] Weight, Pounds : 150 lb Clinical Dosing Weight : 68.18 kg Body Surface Area (BSA) : 1.73 m2 Body Mass Index : 25.8 kg/m2 (HI) [place] Body Weight (IBW) : 58.3 kg Karly Varner RN - 05/22/2019 14:50 EDT Pain Assessment Pain Assessment : Initial assessment Pain Scale Used : 0-10 Scale Location : Other: right thumb Karly Varner RN - 05/22/2019 14:50 EDT Pain Scale Intensity : 9 Karly Varner RN - 05/22/2019 14:50 EDT Image 4 - Images currently included in the form version of this document have not been included in the text rendition version of the form. documented in this encounter Plan of Treatment Not on file documented as of this encounter Visit Diagnoses Not on filedocumented in this encounter
--- OUTSIDE RECORDS SUMMARY | 2025-08-08 11:51 | XMS_ITS | Encounter Summary ---
Author Organization [employer] ([place], [place], [place], [place], [place]) Address [address] [place] [address] Care Team Providers Care Reach Lift Truck Driver Name Role Phone Unavailable Primary Care Provider Unavailabl e Encounter Details Date Type Department Care Team (Late st Contact Info) Description 05/22/2019 Transcribed Document [facility] [place] [address] [place] [address] ProviderPamella MD [address] [place] [address] Social History Tobacco Use Types Packs/Day Years Used Date Smoking Tobacco: Never Assessed Sex and Gender Information Value Date Recorded Sex Assigned at Not on file Legal Sex Male 7:28 PM CDT Gender Identity Not on file Sexual Orientation Not on file documented as of this encounter Miscellaneous Notes * Cerner Conversion Note - Historical ProviderMD - 05/22/2019 6:03 PM CDT ED Discharge Entered On: 05/22/2019 18:04 EDT Performed On: 05/22/2019 18:03 EDT by DIANE ALONSO Discharge Process Patient Disposition : Discharge Personal Belongings With Patient : Yes Patient Education Completed : Yes Teaching Evaluation : Verbalizes understanding IV Discontinued : Yes Nursing Documentation Completed : Yes DIANE ALONSO - 05/22/2019 18:03 EDT ED Discharge Discharge To : Home with ambulatory/outpatient follow-up Mode Of Departure : Private vehicle Accompanied By : Unaccompanied Discharge Instructions Reviewed With, Opportunity For Questions Given : Patient Prescriptions Given to Patient : Yes Number of Prescriptions Given : 1 DIANE ALONSO - 05/22/2019 18:03 EDT documented in this encounter Plan of Treatment Not on file documented as of this encounter Visit Diagnoses Not on filedocumented in this encounter
--- OUTSIDE RECORDS SUMMARY | 2025-08-08 11:51 | XMS_ITS | Referral Summary ---
Author Organization [employer] ([place], [place], [place], [place], [place]) Address [address] [place] [address] Care Team Providers Care Assistant Operator Name Role Phone Unavailable Primary Care Provider Unavailabl e Social History Tobacco Use Types Packs/Day Years Used Date Smoking Tobacco: Never Assessed Sex and Gender Information Value Date Recorded Sex Assigned at Not on file Legal Sex Male 7:28 PM CDT Gender Identity Not on file Sexual Orientation Not on file Plan of Treatment Not on file
--- OUTSIDE RECORDS SUMMARY | 2025-08-08 11:51 | XMS_ITS | Encounter Summary ---
Author Organization [id number] ([place], [place], [place], [place], [place]) Address [address] [place] [address] Care Team Providers Care Business Support Administrator Name Role Phone Unavailable Primary Care Provider Unavailabl e Encounter Details Date Type Department Care Team (Late st Contact Info) Description 05/22/2019 Transcribed Document [facility] [place] Family Medicine [address] [place] [address] ProviderPamella MD [address] [place], [place] [id number] Social History Tobacco Use Types Packs/Day Years Used Date Smoking Tobacco: Never Assessed Sex and Gender Information Value Date Recorded Sex Assigned at Not on file Legal Sex Male 7:28 PM CDT Gender Identity Not on file Sexual Orientation Not on file documented as of this encounter Miscellaneous Notes * Cerner Conversion Note - Pamella ProviderMD - 05/22/2019 2:29 PM CDT ED Assessment Entered On: 05/22/2019 16:22 EDT Performed On: 05/22/2019 16:00 EDT by MICHELLE WU RN ED Quick Look Assessment Level of Consciousness : Alert, Awake Affect/Behavior : Appropriate, Calm, Cooperative Orientation : Oriented x 4 Skin Temperature : Warm Skin Description : Dry MICHELLE WU RN - 05/22/2019 16:20 EDT ED General-Functional Assess Information Obtained From : Patient Communication Barrier : None Primary Language : Albanian Any Spiritual/Cultural Needs or Requests : No Currently in Unsafe Situation : No MICHELLE WU RN - 05/22/2019 16:20 EDT Social Habits Smoking Status : 10 or more cigarettes (1/2 pack or more)/day in last 30 days Smokeless Tobacco Status : Never Desires Tobacco Cessation Medication : No Reason for No Tobacco Cessation Medication : ED/procedural patient only Desires Tobacco Cessation Calc : 1 MICHELLE WU RN - 05/22/2019 16:20 EDT Social History (As Of: 05/22/2019 16:22:40 EDT) Tobacco: Smoking Status Current every day smoker. Packs/Tins Daily: 1.5. (Last Updated: 03/22/2016 13:13:37 EDT by Laura Godfrey, FILIBERTO) Home/Environment: Lives with Spouse. (Last Updated: 03/22/2016 13:10:13 EDT by ALAYNA VASQUEZ, FILIBERTO) Employment/School: Unemployed (Last Updated: 03/22/2016 13:10:19 EDT by ALAYNA VASQUEZ, FILIBERTO) Cardiovascular ASMT, ED Cardiovascular Assessment WDL : WDL Cardiovascular Symptoms : None Chest Pain : No MICHELLE WU RN - 05/22/2019 16:20 EDT Pulses Grid Radial Pulse, Left : 2+ normal Radial Pulse, Right : 2+ normal MICHELLE WU RN - 05/22/2019 16:20 EDT Integumentary Assessment Integumentary Assessment WDL : WDL with exceptions Integumentary Assessment Comment : Pt has laceration to his right thumb after cutting it on an air conditioning fan. MICHELLE WU RN - 05/22/2019 16:20 EDT Neurologic ASMT, ED Neurologic Assessment WDL : WDL Neurological Symptoms : None Level of Consciousness : Alert, Awake Affect/Behavior : Appropriate, Calm, Cooperative Speech : Clear Orientation : Oriented x 4 Pupils Equal, Round, Reactive to Light : Yes Lois Coma Scale Link : Open [facility] MICHELLE WU RN - 05/22/2019 16:20 EDT Lois Coma [place] Best Motor Response : Obey commands [place] Best Verbal Response : Oriented [place] Eye Opening Response : Spontaneous Lois Coma Score : 15 MICHELLE WU RN - 05/22/2019 16:20 EDT Electronically signed by Eliseo [facility] Conversion Coil Strapper Cerner at 01/13/2023 8:19 AM CDT documented in this encounter Plan of Treatment Not on file documented as of this encounter Visit Diagnoses Not on filedocumented in this encounter
--- OUTSIDE RECORDS SUMMARY | 2025-08-08 11:51 | XMS_ITS | Clinical Summary ---
Author Organization [facility] Address [address] [place] [address] Care Team Providers Care Educational Consultant Name Role Phone Janet Varner APRN Primary Care Provider [phone] Allergies Active Allergy Reactions Criticality Noted Date Comments Propofol Other (See Comments) High 04/14/2018 Extremely elevated BP Shellfish Protein-Containing Drug Products Hives 03/09/2018 Medications omeprazole (priLOSEC) 40 MG capsuleIndications: GERD with stricture Take 1 capsule by mouth Daily. 90 capsule 1 8 Active ondansetron ODT (ZOFRAN ODT) 8 MG disintegrating tabletIndications:N ausea vomiting and diarrhea Take 1 tablet by mouth Every 8 (Eight) Hours As Needed for Nausea or Vomiting. 20 tablet 1 9 Active diphenoxylate-atrop ine (LOMOTIL) 2.5-0.025 MG per tabletIndications:N ausea vomiting and diarrhea 2 PO with each loose stool, max of 8 in 24 hours 40 tablet 1 9 Active busPIRone (BUSPAR) 10 MG tabletIndications:A nxiety Take 1 tablet by mouth 3 (Three) Times a Day. 90 tablet 1 0 Active DULoxetine (CYMBALTA) 60 MG capsuleIndications: Anxiety,Moderate episode of recurrent major depressive disorder Take 1 capsule by mouth Daily. 90 capsule 1 0 Active traZODone (DESYREL) 50 MG tabletIndications:O ther insomnia Take 1 tablet by mouth Every Night. 90 tablet 1 0 Active DULoxetine (CYMBALTA) 20 MG capsule 1 po daily 4 days then 2 po daily 4 days then 3 po daily 21 capsule 0 Active LORazepam (ATIVAN) 1 MG tabletIndications:A nxiety TAKE ONE-HALF TO ONE TABLET BY MOUTH EVERY 8 HOURS NEEDED FOR ANXIETY 30 tablet 0 Active Active Problems Problem Noted Date Diagnosed Date Midline thoracic back pain 05/12/2018 Chronic neck pain 05/12/2018 Joint crepitus 05/12/2018 Polyarthralgia 05/12/2018 Painful swelling of joint 05/12/2018 Rash and nonspecific skin eruption 04/15/2018 Left groin pain 04/15/2018 Tobacco use disorder, moderate, dependence 03/09 Anxiety 03/09/2018 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 GERD with stricture 03/09/2018 Resolved Problems Problem Noted Date Diagnosed Date Resolved Date Chalazion of left lower eyelid 03/09/2018 04/15/2018 Acute prostatitis 03/09/2018 04/15/2018 Left lower quadrant pain 03/09/2018 Immunizations Immunization Administration Dates Next Due Hepatitis A 08/11/2018 Tdap 05/22/2019 Family History Medical History Relation Name Comments Heart attack Father Obesity Father Stroke Father Arthritis Maternal Grandmother Cancer Paternal Grandfather Hyperlipidemia Paternal Grandfather Arthritis Paternal Grandmother Mental illness Paternal Grandmother Migraines Paternal Grandmother Relation Name Status Comments Father age 55 wit [place] Maternal Grandmother Paternal Grandfather Paternal Grandmother Social History Tobacco Use Types Packs/Day Years Used Date Smoking Tobacco: Former Cigarettes 1.5 15 Smokeless Tobacco: Never Alcohol Use Standard Drinks/Week Comments Yes 0 (1 standard drink = 0.6 oz pur e alcohol) socially PHQ-2 Answer Date Recorded PHQ-2 Score 20 09/05/2018 Abuse Screen Answer Date Recorded Unsafe at Home or Work/School Not on file Feels Threatened by Someone? Not on file 05/2023 Does Anyone Keep You from Co ntacting Others or Doint Things Outside the Home? Not on file 07/05/2023 Physical Sign of Abuse Present Not on file 1 Housing Stability Answer Date Recorded Current Living Arrangements Not on file 05/2023 Potentially Unsafe Housing Conditions Not on radha e 07/05/2023 Family and Community Support Answer Marcelino e Recorded Help with Day-to-Day Activities Not on file 07/05/2023 Lonely or Isolated Not on file 07/05/2023 Employment Answer Date Recorded Do you want help finding or keeping work or a rina b? Not on file 07/05/2023 Disabilities Answer Date Recorded Concentrating, Remembering, or Making Decisions Difficulty Not on file 07/05/2023 Doing Errands Independently Difficulty Not on fi le 07/05/2023 Education Answer Date Recorded Help with school or training? Not on file Preferred Language Not on file 07/05/2023 Sex and Gender Information Value Date Recorded Sex Assigned at Not on file Legal Sex Male 10:06 AM EDT Gender Identity Not on file Sexual Orientation Not on file Last Filed Vital Signs Vital Sign Reading Time Taken Comments Blood Pressure 120/80 10/13/2019 11:01 AM EST Pulse 68 10/13/2019 11:01 AM EST Temperature 37.6 C (99.6 F) 12/28/2019 12:02 PM EDT Respiratory Rate 16 10/13/2019 11:01 AM EST Oxygen Saturation 98% 04/14/2018 4:43 PM EDT Inhaled Oxygen Concentration - - Weight 69.4 kg (153 lb) 10/13/2019 11:01 AM EST Height 162.6 cm (5' 4.02 ) 10/13/2019 11:[address] Body Mass Index 26.25 10/13/2019 11:01 AM EST Plan of Treatment Health Maintenance Due Date Last Done Comments ANNUAL PHYSICAL 08/29/2017 HEPATITIS C SCREENING 08/29/2017 COLOGUARD 2018 COLON CANCER SCREENING 5 YEAR SIGMOIDOSCOPY 2018 COLONOSCOPY 2018 [address] CANCER SCREENING 2018 CT COLONOGRAPHY 2018 FECAL OCCULT BLOOD TEST 2018 FIT Testing (1 year) 2018 Pneumococcal Vaccine 50+ (1 of 1 - PCV) 2023 ZOSTER VACCINE (1 of 2) 2023 INFLUENZA VACCINE 04/27/2025 TDAP/TD VACCINES (2 - Td or Tdap) 05/22/2029 019 Insurance MEDICARE A ONLY [address] [place] [id number] Care Teams Educational Consultant Relationship Specialty Start Date End Date Janet Varner, LOSS PREVENTION AUDITOR [address] [place] [address] PCP - General Family Medicine 09/14/17
--- OUTSIDE RECORDS SUMMARY | 2025-08-08 11:51 | XMS_ITS | Clinical Summary ---
Author Organization [employer] ([place], [place], [place], [place], [place]) Address [address] [place] [address] Care Team Providers Care Cisco Network Engineer Name Role Phone Unavailable Primary Care Provider [...]
--- OUTSIDE RECORDS SUMMARY | 2025-08-08 11:51 | XMS_ITS | Encounter Summary ---
Author Organization [employer] ([place], [place], [place], [place], [place]) Address [address] [place] [address] Care Team Providers Care Refrigeration Tech Name Role Phone Unavailable Primary Care Provider Unavailabl e Encounter Details Date Type Department Care Team (Late st Contact Info) Description 05/22/2019 Transcribed Document [facility] [address] [place] [address] ProviderPamella MD [address] [place] [address] Social History Tobacco Use Types Packs/Day Years Used Date Smoking Tobacco: Never Assessed Sex and Gender Information Value Date Recorded Sex Assigned at Not on file Legal Sex Male 7:28 PM CDT Gender Identity Not on file Sexual Orientation Not on file documented as of this encounter Miscellaneous Notes * Cerner Conversion Note - Historical ProviderMD - 05/22/2019 8:08 PM CDT CR Hand Min 3 Vws RT Ordered: 05/22/2019 Auth (Verified) Reason for Exam: PAIN 05/22/2019 16:59 05/22/2019 20:08 (DARION POLLACK PA) Reviewed by Provider, No further action required x1 05/22/2019 17:52 (BOB MCKEON) Provider Review Required 05/22/2019 17:51 (BOB MCKEON) Provider Review Required documented in this encounter Plan of Treatment Not on file documented as of this encounter Visit Diagnoses Not on filedocumented in this encounter
--- OUTSIDE RECORDS SUMMARY | 2025-08-08 11:51 | XMS_ITS | Encounter Summary ---
Author Organization [employer] ([place], [place], [place], [place], [place]) Address [address] [place] [address] Care Team Providers Care Materials Research Engineer Name Role Phone Unavailable Primary Care Provider Unavailabl e Encounter Details Date Type Department Care Team (Late st Contact Info) Description 05/22/2019 Transcribed Document [facility] [place] [address] ProviderPamella MD [address], [place] [id number] Social History Tobacco Use Types Packs/Day Years Used Date Smoking Tobacco: Never Assessed Sex and Gender Information Value Date Recorded Sex Assigned at Not on file Legal Sex Male 7:28 PM CDT Gender Identity Not on file Sexual Orientation Not on file documented as of this encounter Miscellaneous Notes * Cerner Conversion Note - Historical ProviderMD - 05/22/2019 5:29 PM CDT Patient: FREDERIC TAYLOR Age: 43 years Sex: Male : 1975 Associated Diagnoses: Open fracture of distal phalanx of thumb; Laceration of left thumb without complication; Closed fracture of distal phalanx of left thumb Author: DARION POLLACK PA Basic Information Additional information: Chief Complaint from Nursing Triage Note : Chief Complaint 05/22/2019 14:50 EDT Chief Complaint patient with laceration to right thumb, 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 . History of Present Illness Patient is a 43-year-old male who presents to the ED for evaluation of right laceration to thumb. Patient states that he was working on an air-conditioner prior to arrival, stick it standing in the ACC unit in the family blade caught his thumb. States that it started bleeding immediately, has a laceration to the thumb, feels that it is present as is painful and swollen. Patient is unsure of last tetanus vaccine. Denies any numbness or tingling in the thumb, states he is able to move it without difficulty although painful. Review of Systems Constitutional symptoms: Negative except as documented in HPI. Skin symptoms: Negative except as documented in HPI. Musculoskeletal symptoms: Negative except as documented in HPI. Neurologic symptoms: Negative except as documented in HPI. Health Status Allergies: Allergic Reactions (Selected) No Known Medication Allergies. Past Medical/ Family/ Social History Surgical history: No active procedure history items have been selected or recorded.. Family history: No family history items have been selected or recorded.. Social history: Social & Psychosocial Habits Employment/School 03/22/2016 Status: Unemployed Home/Environment 03/22/2016 Lives with: Spouse Tobacco 03/22/2016 Smoking Status Current every day smoker Packs/Tins Daily 1.5 . Problem list: Active Problems (1) No Chronic Problems . Physical Examination Vital Signs Vital Signs/Vital Measures 05/22/2019 14:50 EDT Systolic Blood Pressure 142 mmHg HI Diastolic Blood Pressure 86 mmHg Temperature Source Oral Temperature Mode Fahrenheit Temperature, Fahrenheit 98.1 Deg F Clinical Temperature, C 36.7 Deg C Peripheral Pulse Rate 76 bpm Respiratory Rate 18 Breaths/Min Oxygen Saturation 98 % Oxygen Therapy Mode Room air . Measurements 05/22/2019 14:50 EDT Height Source Stated Height Entry Format [place] Height/Length, BANGLADESHI (ft) 5 ft Height/Length BANGLADESHI 4 Inch CLINICALHEIGHT 162.56 cm [place] Body Weight 58.3 kg Weight Source, ED Critical estimated dosing weight Weight Entry Format [place] Weight [place] lb 150 lb CLINICALWEIGHT 68.18 kg Body Surface Area (BSA) 1.73 m2 Body Mass Index 25.8 kg/m2 HI . Oxygen Saturation 05/22/2019 14:50 EDT Oxygen Saturation 98 % . General: Alert, no acute distress. Skin: Warm, dry, pink. Musculoskeletal: Normal ROM, Capillary refill less than 2 seconds, normal range of motion, Fingers/toes: Right, distal, first, finger(s), laceration, . Medical Decision Making Differential Diagnosis: Hand pain, finger pain, fracture, skin laceration. Documents reviewed: Emergency department nurses' notes. Radiology results: Radiology Results (Last 48 hours) [id number] -- 05/22/2019 14:29 CR Hand Min 3 Vws RT (05/22/2019 16:28) Result: RIGHT HAND SERIESHISTORY: Right hand pain, trauma.FINDINGS: Three views of the right hand demonstrate age of fractureinvolving the proximal aspect of the distal phalanx of the thumb. Noother fracture.IMPRESSION: Acute fracture as above.Images reviewed, interpreted, and dictated by Dr. Kiara Casillas.Transcribed by Naeem Gamez, ASH, RWangT. (N), Rivera Isaac T.I have personally viewed, interpreted and dictated the examination. Arthur read and agree with the above final transcribed report. . Notes: Tetanus vaccine is updated in the ED. Laceration repaired. Patient does have a fracture of the distal phalanx of the thumb, discussed with Dr. Meehan who recommended the patient be placed on Bactrim. Patient was in thumb splint by EMT, evaluated by myself after placement with proper alignment, neurovascularly intact Patient was given follow-up with hand surgeon. Patient was agreeable to treatment plan, voiced understanding of return precautions. Discharged home in stable condition.. Procedure Laceration repair Consent: Patient. Description/ repair Laceration 4 cm in length.Shape: irregular, flap. Depth: subcutaneous. Neurovascular/ tendon exam: intact. Anesthesia: 5 ml, 1% lidocaine. Preparation: sterile field established, skin prepped with chlorhexidine. Irrigation: copious, with saline. Debridement: none. Skin closure: # 5 sutures, with 5 -0 Nylon, simple technique, interrupted technique, Dermabond. Complexity: single layer. Post procedure exam: Circulation, motor, sensory examination intact. Complications: None. Patient tolerated: Well. Performed by: Self. Impression and Plan Diagnosis Laceration of left thumb without complication - Discharge, Emergency medicine, Medical Closed fracture of distal phalanx of left thumb - Discharge, Emergency medicine, Medical Plan Condition: Stable. Prescriptions: Prescription Shredded Filler Cutter Operator Pharmacy: amoxicillin-clavulanate 875 mg-125 mg oral tablet (Prescribe): 1 Tab, Oral, Q12H, for 10 Day(s), 20 Tab, 0 Refill(s). Patient was given the following educational materials: Thumb Fracture, Laceration Care, Adult, Laceration Care, Adult, Thumb Fracture. Follow up with: ЕЛЕНА SULLIVAN Within 2 to 3 days; [facility] Within 2 to 3 days Follow-up with hand surgery within 2-3 days of ED visit. Remain in thumb splint until evaluated by orthopedics. Take medications as prescribed. Return to ED or your family doctor for removal of stitches in 5-7 days. Return to ED sooner if symptoms worsen. Alternate Tylenol and ibuprofen as directed on packaging for control of pain.. Counseled: Patient, Regarding diagnosis, Regarding diagnostic results, Regarding treatment plan, Regarding prescription, Patient indicated understanding of instructions. Notes: I certify that the Physician Medical And Health Services Manager performed the services as delegated. This document was created with [employer] software and unidentified remote sensing advisor errors may be present.. . Wells--I saw and examined the patient, conducting an independent history and physical exam. His laceration has been sutured. Discussed care, start Augmentin, discussed indications for return. Also has tuft fracture--I don't think this looks like an open fracture, more so an overlying laceration of the superficial skin that does not extend down into the bone. documented in this encounter Plan of Treatment Not on file documented as of this encounter Visit Diagnoses Not on filedocumented in this encounter
--- OUTSIDE RECORDS SUMMARY | 2025-08-08 11:51 | XMS_ITS | Encounter Summary ---
Author Organization [employer] ([place], [place], [place], [place], [place]) Address [address] [place] [address] Care Team Providers Care Aix Administrator Name Role Phone Unavailable Primary Care Provider Unavailabl e Encounter Details Date Type Department Care Team (Late st Contact Info) Description 05/22/2019 Transcribed Document [facility] [place] [facility] [address] [place] [address] ProviderPamella MD [address] [place] [address] Social History Tobacco Use Types Packs/Day Years Used Date Smoking Tobacco: Never Assessed Sex and Gender Information Value Date Recorded Sex Assigned at Not on file Legal Sex Male 7:28 PM CDT Gender Identity Not on file Sexual Orientation Not on file documented as of this encounter Miscellaneous Notes * Cerner Conversion Note - Pamella Castelan MD - 05/22/2019 5:59 PM CDT [facility] [place] [address] FREDERIC TAYLOR :1975 Visit Time:05/22/2019 Your Visit Summary Your Care Team Admitting Physician - ANKIT CUELLO MD PHY, UNKNOWN Attending Physician - ANKIT CUELLO MD Primary Care Physician - ЕЛЕНА SULLIVAN NP-INT Referring Physician - ANKIT CUELLO MD Your Diagnosis Finger pain-swelling Open fracture of distal phalanx of thumb Medical Information You may obtain a copy of your Emergency Department visit from Medical Records by calling the hospital phone number listed above and asking to be directed to the Medical Records Department. If you had special tests, such as EKG???s or X-rays, the interpretation of your tests given to you by the Emergency Department Physician is a preliminary report. Some fractures and illnesses fail to show up on preliminary tests. These will be reviewed again and we will call you if there are any new suggestions. If your symptoms continue notify your physician. After you leave, you should follow the instructions provided. What to do next Follow-Up Appointments Follow Up with [facility] When Within 2 to 3 days Comments Follow-up with hand surgery within 2-3 days of ED visit. Remain in thumb splint until evaluated by orthopedics. Take medications as prescribed. Return to ED or your family doctor for removal of stitches in 5-7 days. Return to ED sooner if symptoms worsen. Alternate Tylenol and ibuprofen as directed on packaging for control of pain. Where: [address] [place] [address]- Business (1) Follow Up with ЕЛЕНА SULLIVAN When Within 2 to 3 days Where: [address] [place] [address] [address] [place] [address]- Business (1) Allergies No Known Medication Allergies Immunizations This Visit tetanus/diphtheria/pertussis, acel(Tdap) 05/22/2019 Medications What How Much When Instructions Next Dose New amoxicillin-clavulanate (amoxicillin-clavulanate 875 mg-125 mg oral tablet) 1 Tablet(s) Oral Every 12 hours Duration: 10 Day(s) Pickup at [facility] Pharmacy Information [facility]: [address], [place] [id number] [phone] The home medications listed are only as accurate as the information you provided. Please continue taking all of your medications prescribed by your Primary Care Provider unless specifically told to change or discontinue the medication. Please direct any questions regarding your home medications to your Primary Care Provider. Take your medications faithfully. Do NOT skip medication. Do NOT stop taking medications without the direction of a physician. Carry a list of your medications with you at all times, and take this medication list with you to your first follow up visit. Report any side effects. Avoid herbal remedies unless discussed with your physician. As part of your treatment plan, your physician may have prescribed a limited course of a controlled substance. This medication may be given to help people with moderate or severe pain or for other medical conditions, but there are risks involved with treatment. Common side effects may include nausea, constipation, drowsiness, sweating, itching, dry mouth, and rash. More serious side effects may include cognitive and motor impairment, like problems with thinking, concentrating, alertness, and movement (e.g. slowed reflexes), and driving and operating heavy machinery can be dangerous. It is important for you to talk to your physician if you have these side effects or questions. These controlled substances can produce physical dependence and be habit-forming if taken for an extended period of time, which means that the body has gotten used to them and may experience withdrawal symptoms if they are abruptly stopped. Withdrawal symptoms can include runny nose, sweating, goose bumps, diarrhea, abdominal cramping, rapid heartbeat, difficulty sleeping, and nervousness. Please dispose of unused and medications per pharmacy guidance. Test Results Laboratory or Other Results This Visit (last charted value for your 05/22/2019 visit) Diagnostic Radiology 05/22/19 16:28:00 CR Hand Min 3 Vws RT: CR Hand Min 3 Vws RT Education Materials Laceration Care, Adult A laceration is a cut that goes through all of the layers of the skin and into the tissue that is right under the skin. Some lacerations heal on their own. Others need to be closed with stitches (sutures), luigi, skin adhesive strips, or skin glue. Proper laceration care minimizes the risk of infection and helps the laceration to heal better. How is this treated? If sutures or luigi were used: ??? Keep the wound clean and dry. ??? If you were given a bandage (dressing), you should change it at least one time per day or as told by your health care provider. You should also change it if it becomes wet or dirty. ??? Keep the wound completely dry for the first 24 hours or as told by your health care provider. After that time, you may shower or bathe. However, make sure that the wound is not soaked in water until after the sutures or luigi have been removed. ??? Clean the wound one time each day or as told by your health care provider: ? Wash the wound with soap and water. ? Rinse the wound with water to remove all soap. ? Pat the wound dry with a clean towel. Do not rub the wound. ??? After cleaning the wound, apply a thin layer of antibiotic ointment as told by your health care provider. This will help to prevent infection and keep the dressing from sticking to the wound. ??? Have the sutures or luigi removed as told by your health care provider. If skin adhesive strips were used: ??? Keep the wound clean and dry. ??? If you were given a bandage (dressing), you should change it at least one time per day or as told by your health care provider. You should also change it if it becomes dirty or wet. ??? Do not get the skin adhesive strips wet. You may shower or bathe, but be careful to keep the wound dry. ??? If the wound gets wet, pat it dry with a clean towel. Do not rub the wound. ??? Skin adhesive strips fall off on their own. You may trim the strips as the wound heals. Do not remove skin adhesive strips that are still stuck to the wound. They will fall off in time. If skin glue was used: ??? Try to keep the wound dry, but you may briefly wet it in the shower or bath. Do not soak the wound in water, such as by swimming. ??? After you have showered or bathed, gently pat the wound dry with a clean towel. Do not rub the wound. ??? Do not do any activities that will make you sweat heavily until the skin glue has fallen off on its own. ??? Do not apply liquid, cream, or ointment medicine to the wound while the skin glue is in place. Using those may loosen the film before the wound has healed. ??? If you were given a bandage (dressing), you should change it at least one time per day or as told by your health care provider. You should also change it if it becomes dirty or wet. ??? If a dressing is placed over the wound, be careful not to apply tape directly over the skin glue. Doing that may cause the glue to be pulled off before the wound has healed. ??? Do not pick at the glue. The skin glue usually remains in place for 5???10 days, then it falls off of the skin. General Instructions ??? Take [id number]-[id number] and prescription medicines only as told by your health care provider. ??? If you were prescribed an antibiotic medicine or ointment, take or apply it as told by your doctor. Do not stop using it even if your condition improves. ??? To help prevent scarring, make sure to cover your wound with sunscreen whenever you are outside after stitches are removed, after adhesive strips are removed, or when glue remains in place and the wound is healed. Make sure to wear a sunscreen of at least 30 SPF. ??? Do not scratch or pick at the wound. ??? Keep all follow-up visits as told by your health care provider. This is important. ??? Check your wound every day for signs of infection. Watch for: ? Redness, swelling, or pain. ? Fluid, blood, or pus. ??? Raise (elevate) the injured area above the level of your heart while you are sitting or lying down, if possible. Contact a health care provider if: ??? You received a tetanus shot and you have swelling, severe pain, redness, or bleeding at the injection site. ??? You have a fever. ??? A wound that was closed breaks open. ??? You notice a bad smell coming from your wound or your dressing. ??? You notice something coming out of the wound, such as wood or glass. ??? Your pain is not controlled with medicine. ??? You have increased redness, swelling, or pain at the site of your wound. ??? You have fluid, blood, or pus coming from your wound. ??? You notice a change in the color of your skin near your wound. ??? You need to change the dressing frequently due to fluid, blood, or pus draining from the wound. ??? You develop a new rash. ??? You develop numbness around the wound. Get help right away if: ??? You develop severe swelling around the wound. ??? Your pain suddenly increases and is severe. ??? You develop painful lumps near the wound or on skin that is anywhere on your body. ??? You have a red streak going away from your wound. ??? The wound is on your hand or foot and you cannot properly move a finger or toe. ??? The wound is on your hand or foot and you notice that your fingers or toes look pale or bluish. This information is not intended to replace advice given to you by your health care provider. Make sure you discuss any questions you have with your health care provider. Document Released: 09/13/2006 Document Revised: 02/12/2017 Document Reviewed: 09/09/2015 [employer] Interactive Patient Education ?? 2019 [employer] Thumb Fracture A thumb fracture is a break in one of the two bones of your thumb. The thumb bone that goes from the tip of your thumb to the first joint in your thumb is called the distal phalanx. The thumb bone that goes from the first joint to the joint at the base of your thumb is called the proximal phalanx. Breaks that occur at the joints of your thumb are harder to treat. A broken thumb is more serious than a break in one of your other fingers because you need your thumb for grasping. Thumb fractures are also more likely to lead to pain and stiffness years after healing (arthritis). What are the causes? Thumb fractures may be caused by: ??? A direct blow to your thumb. ??? Stress on your thumb from it being pulled out of place. These types of injuries often happen as a result of: ??? Car accidents. ??? Bicycle accidents. ??? Falling with your hand outstretched. ??? Participating in sports such as wrestling, hockey, football, or skiing. What increases the risk? You may be more likely to break your thumb if you have a condition that causes your bones to become thin and brittle (osteoporosis). What are the signs or symptoms? The most common symptom is severe pain at the fracture site. Other signs and symptoms may include: ??? Swelling. ??? Bruising. ??? Not being able to move the thumb. ??? An abnormal shape of the thumb (deformity). ??? Numbness or coldness. ??? A red, black, or blue thumbnail. How is this diagnosed? Your health care provider may suspect a thumb fracture if you recently injured your thumb and have signs and symptoms of a fracture. An X-ray of your thumb may be done to confirm the diagnosis and determine how bad the break is. How is this treated? A thumb fracture should be treated as soon as possible. You may need to wear a padded splint to keep your thumb from moving and to protect your thumb until you can get a cast or have surgery. Treatment options include: ??? Immobilization. ? A cast or splint is put on the injured area without changing the position of the broken bone. ? You may have to wear a type of cast called a spica cast or hitchhiker cast to hold the thumb in the proper position. ? A cast is usually left on for 4?6 weeks. ??? Closed reduction. ? In this procedure, the bones are put back into position without surgery. ??? Open reduction and internal fixation (ORIF). This is a surgical procedure. ? First, the fracture site is opened up. ? Then, the bone pieces are fixed into place with metal screws, plates, or wires. ??? External fixation. ? In this type of open reduction, the fracture is held in place by metal pins. ? The pins are attached to a stabilizing bar outside your skin. ??? You may need to wear a cast after surgery for up to 6 weeks. ??? You may need to return for X-rays to make sure your thumb is healing properly. ??? After your cast is taken off, you may need to do hand exercises (physical therapy) to get movement back in your thumb. ??? It may take another 3 months to regain complete use of your thumb. Follow these instructions at home: ??? Take medicines only as directed by your health care provider. ??? Keep your hand elevated above the level of your heart when resting. ??? Keep your cast dry when bathing. Cover it with a plastic bag as directed by your health care provider. ??? After your cast is removed, exercise your thumb at home. Your health care provider may suggest that you: ? Move your thumb in circles. ? Touch your thumb to your little finger. ? Do these exercises several times a day. ??? Ask your health care provider whether you can use a hand accountant supervisor to strengthen your muscles. ??? If your thumb feels stiff while you are exercising it, try doing the exercises while soaking your hand in warm water. ??? Keep all follow-up visits as directed by your health care provider. This is important. Contact a health care provider if: ??? You have more than a small spot of bleeding from under your cast or splint. ??? Your pain medicine is not helping. ??? You have a fever. ??? You have numbness or tingling in the injured area. ??? Your cast becomes loose or damaged. ??? You notice a bad odor or discharge coming from under your cast. Get help right away if: ??? You have pain that is very bad or getting worse. ??? You lose feeling in your thumb. ??? Your thumb turns pale or blue. ??? Your thumb feels cold. ??? You have drainage, redness, or swelling at the injury site. This information is not intended to replace advice given to you by your health care provider. Make sure you discuss any questions you have with your health care provider. Document Released: 06/11/2004 Document Revised: 05/16/2017 Document Reviewed: 11/16/2014 [employer] Interactive Patient Education ?? 2019 [employer]. Emergency Awareness and Preventative Care STROKE is an EMERGENCY Every Minute Counts Act FAST and Check for these signs: FACE Does the face look uneven? ARM Does one arm drift down? SPEECH Does their speech sound strange? TIME Call at any sign of stroke Stroke Risk Factors Atrial Fibrillation (irregular heartbeat) Diabetes Family history of stroke Heart Disease Heavy alcohol use High Blood Pressure High Cholesterol Physical inactivity and obesity Smoking Cigarette Smoking The facts are clear, cigarette smoking will shorten your life. Smoking can cause many illnesses along the way. As a healthcare provider, we recommend that you stop smoking. Assistance with quitting is available by contacting 6-859-WPBZ-NOW. This is a free resource providing counseling, support, and referral. Or you may contact your personal physician. National Suicide Prevention Lifeline: The National Suicide Prevention Lifeline is a national network of local crisis centers that provides free and confidential emotional support to people in suicidal crisis or emotional distress 24 hours a day, 7 days a week. Don't Wait! Stop a Heart Attack Before it Starts What is a heart attack? A heart attack is damage or to a part of the heart from severely decreased or lack of blood flow to the heart. Over time, arteries can become narrow from the buildup of fat and cholesterol, which is called plaque. The plaque can rupture causing a blood clot to form. When the blood clot forms, the artery can become severely narrowed or completely blocked, causing a heart attack. Heart attack is the leading cause of in the [place]. 85% of muscle damage occurs within the first 2 hours. Delay in the recognition of heart attack symptoms increases the chances of . Know the early symptoms of a heart attack: Nausea Feeling of fullness in chest Jaw Pain Pain that travels down one or both arms Fatigue/being tired Anxiety Back Pain Chest pressure, squeezing, or discomfort Shortness of breath Sweating, or a cold sweat Feeling of impending doom There are unusual signs of a heart attack, too! Women, the elderly, and diabetics may present with atypical symptoms: Fainting/dizziness Weakness Confusion Risk Factors for a Heart Attack Some heart disease risk factors, such as age and family history, cannot be changed. Others, like smoking and lack of exercise, can be changed. Smoking High Cholesterol High Blood Pressure Family History Obesity Age Gender (Males are at higher risk) Lack of Exercise Diabetes Diet Stress Excessive Alcohol Intake If you or someone you know is experiencing the signs and symptoms of a heart attack, DON???T DELAY. Call immediately and seek help. If someone collapses, perform CPR! Do not attempt to drive if you are having symptoms of heart attack. Hands-Only CPR Why Hands-Only CPR? Hands-Only CPR has been shown to be as effective as conventional CPR for cardiac arrests that occur outside of a hospital. Survival depends on immediately receiving CPR from someone nearby. How do you perform Hands-Only CPR? There are two easy steps: Call if you see a teen or adult collapse Push hard and fast in the center of the chest at a beat of 100 beats per minute. Save a life! 4 WAYS TO GET AHEAD OF SEPSIS SEPSIS is a MEDICAL EMERGENCY. Time matters! Infections put you and your family at risk for a life-threatening condition called sepsis. Sepsis is the body's extreme response to an infection. It is life-threatening, and without timely treatment, sepsis can rapidly lead to tissue damage, organ failure, and . Sepsis happens when an infection you already have-in your skin, lungs, urinary tract or somewhere else-triggers a chain reaction throughout your body. 1 PREVENT INFECTIONS Take good care of chronic conditions. Talk to your doctor about getting the recommended vaccines. 2 PRACTICE GOOD HYGIENE Wash your hands frequently. Keep cuts or open sores clean and covered until they are healed. 3 KNOW THE SYMPTOMS Confusion or disorientation Shortness of breath High heart rate Fever, shivering, or feeling very cold Extreme pain or discomfort Clammy or sweaty skin 4 ACT FAST Get medical care IMMEDIATELY if you suspect sepsis or if you have an infection that is not getting better or is getting worse. To learn more about sepsis and how to prevent infections, visit www.cdc.gov/sepsis. The examination and treatment you have received in the Emergency Department has been done to provide an appropriate evaluation and stabilizing treatment on an emergency basis only. Given the limited resources, it is not meant to be a substitute for complete medical care. The follow-up doctor you named will receive a copy of your records and all test reports. IT IS IMPORTANT THAT YOU SCHEDULE A FOLLOW-UP APPOINTMENT AND ARE RE-EVALUATED. You should report any new complaints, symptoms, or remaining problems at that time. IT IS IMPOSSIBLE FOR THE EMERGENCY DEPARTMENT TO RECOGNIZE AND TREAT ALL ELEMENTS OF INJURY OR ILLNESS IN A SINGLE VISIT. If you have been referred to a specialist physician, it means that we believe you may have a condition that requires the expertise of a specialist. These physicians work in partnership with the hospital and have agreed to see referred patients in their office for further evaluation. KEEP IN MIND THAT THE SPECIALIST HAS HIS/HER OWN OFFICE POLICIES WHICH MAY REQUIRE PROPER INSURANCE OR PAYMENT UP FRONT BEFORE THE SPECIALIST WILL SEE YOU. It is your responsibility to call the specialist physician to make an appointment. We do not have the ability to refer patients to specialists/physicians that work with specific insurance companies. Please be advised that all financial charges or billing practices are determined by that practice, not the hospital. If your insurance company requires that you see a specialist from their approved list, it is your responsibility to contact your insurance company to make those arrangements. It is also your responsibility to follow any other requirements of your insurance company necessary to obtain coverage for claims submitted. We will bill your insurance; however, you are responsible today for any co-pay amounts. You will receive a separate bill for any services you may have received including: emergency, radiology, or pathology physicians. Patient Name:FREDERIC TAYLOR I have received this information and was given the opportunity to ask questions. Patient/Clinical Therapist Name: Patient/Clinical Therapist Signature: Relationship to Patient: Clinician/Hospital Clinical Therapist Signature: Please Provide a Telephone Number Where You Can Be Reached: Is it Permissible To Leave a Message? Date: Electronically signed by Eliseo, [facility] Conversion Robotype Operator Luis at 01/13/2023 8:05 AM CDT documented in this encounter Plan of Treatment Not on file documented as of this encounter Visit Diagnoses Not on filedocumented in this encounter
--- OUTSIDE RECORDS SUMMARY | 2025-08-08 11:52 | XMS_ITS | Patient Health Record ---
[facility] [address] [facility] [address] [facility] [address] [place] [id number] Care Team Providers Care Project Safety Manager Name Role Phone Edwardo Mccall Primary Care [...] - 38 plat 195 100 - 400 CBC Fingerstick (in house) Reviewed date:04/11/2025 12:40:38 [...] - 38 plat 215 100 - 400 Reason For Referral No Information Medications Medication SIG (Take, Route, Frequency, Duration) Notes Start Date End Date Status Albuterol Sulfate HFA 108 (90 Base) MCG/ACT 1 puff as needed Inhalation every 4 hrs 10/11/2024 Active Zithromax Z-Martinez 250 MG as directed Orall y daily; Duration: 5 days 04/11/2025 Active Humira (2 Syringe) 40 MG/0.8ML as directed Subcutaneous Act veronica Omeprazole 40 MG Take 1 capsule by [facility] twice daily; Duration: 90 Active Immunizations Vaccine Route Administration Date Status Comme nts COVID 19 Moderna Unknown 09/15/2021 Administered COVID 19 Moderna Unknown 10/13/2021 Administered Hepatitis A (adult) Unknown 08/11/2018 Administered Tetanus Tdap-Adacel (over 7yrs) Unknown 05/22/2019 Admi nistered Problems Problem Type SNOMED Code ICD Code Onset Dates Problem Status W/U Status Risk Notes Problem Primary insomnia (0442969) Primary insomnia (F51.01) Active confirmed Problem Rheumatoid arthritis (76243164) Rheumatoid arthritis involving multiple sites with positive rheumatoid factor (M05.79) Active confirmed Problem Esophageal stricture (36757982) Esophageal stricture (K22.2) Active confirmed Problem Gastroesophageal reflux disease (239333815) Gastroesophageal reflux disease, unspecified whether esophagitis present (K21.9) Active confirmed Vital Signs Heart Rate 80 /min 04/11/2025 Blood pressure diastolic 84 mm Hg 04/11/2025 Height 64 in 04/11/2025 Blood pressure systolic 140 mm Hg 04/11/2025 Weight 165.8 lbs 04/11/2025 BMI 28.46 kg/m2 04/11/2025 Encounters Encounter Location Date Provider Diagnosis [facility] [address] [facility] [address] [place], [place] [id number] 10/11/2024 Edwardo [place] Acute URI J06.9 and SOB (shortness of breath) R06.02 [facility] [address] [facility] [address] [place] [phone] 04/11/2025 Edwardo [place] Acute URI J06.9 Assessments Encounter Date Diagnosis (ICD Code) Assessment Notes Treatment Notes Treatment Clinical Notes Section Notes 10/11/2024 SOB (shortness of breath) (ICD-10 - R06.02) 10/11/2024 Acute URI (ICD-10 - J06.9) 04/11/2025 Acute URI (ICD-10 - J06.9) Plan Of Treatment No Information Insurance Providers Payer Name Payer Address Payer Phone Subscriber Number Group Number Insured Name Patient Relationship to Insured Coverage Start Date Coverage End Date [employer] [address] [place] [address] [id number] FREDERIC CHAPA Self - patient is the insured Medical (General) History Medical History History ICD Code Allergis Rhinits Rhuematoid Arthritis Osteoarthritis Psoriasis 50 pack year smoking history as of 2022, quit smoking in 2021 esophageal stricture Colon polyps, Dx: 2022, needs scope in 026 Brooke's esophagus, Dx:2022, needs scop e in 2025 Surgical History Surgery Date(Month/Year) RT Hand Tendon Repair 1993 EGD 2017 Colonoscopy 2017
== END 2025-08-08 23:59 | disposition home or self-care (01) ==
LOC: RAD 11:49
PROVIDERS: PCP Family Medicine; Visit Provider Nurse Practitioner Women's Health
DX: M47.27 Other spondylosis with radiculopathy, lumbosacral region (principal); M05.79 Rheumatoid arthritis with rheumatoid factor of multiple sites without organ or systems involvement; M15.0 Primary generalized (osteo)arthritis; W19.XXXA Unspecified fall, initial encounter
CPT/HCPCS: 72110